=== PATIENT | female | born 1975 | race Caucasian/White ===

== ENCOUNTER 2018-01-16 03:14 | Emergency (ER) | payer MEDICARE, MEDICAID ==
[2018-01-16] MEDS ORDERED: ONDANSETRON 4 MG ORAL DISINTEGRATING TAB (Q0162 PER 1MG) As Ordered (03:43)
[2018-01-16] MEDS: ONDANSETRON 4 MG ORAL DISINTEGRATING TAB (Q0162 PER 1MG) PO (03:54)
== END 2018-01-16 04:46 | disposition home or self-care (01) ==
LOC: M ED 03:14
DX: F10.129 Alcohol abuse with intoxication, unspecified (principal); Z79.899 Other long term (current) drug therapy; Z88.8 Allergy status to other drugs, medicaments and biological substances
CPT/HCPCS: Q0162

== ENCOUNTER 2018-09-05 20:46 | Emergency (ER) | payer OTHER, MEDICARE, MEDICAID ==
[~2018-09-05] VITALS: Ht 160 cm; Wt 65.9 kg
[~2018-09-05 20:46] MED LIST: ABIL5TAB OR; ACET1TAB15 PO; ADVA1AER2; ALBUTEROL INH; ALPR1TAB3 PO; AMBI10TA OR; AMIT25TA10 PO; COLA100C2 OR; EFFE150C PO; ESOMEPRAZOLE PO; HYDROX; LIDO5DIS TOP; LUNE3TAB PO; LYRI75CA PO; LYRIC; METH1TAB40 PO; MULTIVIT PO; NAPROXEN PO; ONDA-1 PO; PERC5TAB8 PO; PROBCAP4 PO; SERO1TAB3 PO; SERT-138 PO; SKEL800T5 OR; TRAZ100T PO; TYLENOL #3; VENTAER; VENTAER INH; VIST25CA PO; VOLT1GEL TOP; ZANA4CAP PO; prenatal vitamin; seroquel
[2018-09-05 20:56] VITALS: BP 132/77
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
== END 2018-09-05 22:20 | disposition home or self-care (01) ==
LOC: M ED 20:46
DX: S70.11XA Contusion of right thigh, initial encounter (principal); V48.1XXA Car passenger injured in noncollision transport accident in nontraffic accident, initial encounter; Y92.9 Unspecified place or not applicable; Y93.9 Activity, unspecified; Y99.9 Unspecified external cause status; F10.10 Alcohol abuse, uncomplicated; F19.10 Other psychoactive substance abuse, uncomplicated; Z72.0 Tobacco use; Z79.899 Other long term (current) drug therapy

== ENCOUNTER 2018-12-31 12:39 | Emergency (ER) | payer MEDICARE, MEDICAID ==
[~2018-12-31] VITALS: Ht 160 cm; Wt 61.4 kg
--- NOTE | 2018-12-31 13:08 | REP ---
Head CT without contrast: History: Stroke like symptoms Comparison study: September 05, 2018. CT findings: Bone window settings demonstrate an intact bony calvarium. There is no evidence of skull fracture or incidental bony calvarial lesion. The visualized paranasal sinuses appear clear. No intraorbital abnormality is seen. On soft tissue window setting images; the lateral, third, and fourth ventricles are normal in size and position. Ho-white differentiation pattern is normal above and below the tentorium. There are is no evidence of intracranial hemorrhage. No mass, edema, infarction, or midline shift is seen. No extra-axial fluid collection is appreciated. Impression: Negative noncontrast head CT. Electronically Signed by Prakash Brand MD 12/31/2018 12:59 P
[2018-12-31] MEDS ORDERED: ALBUTEROL SULFATE 2.5 MG/0.5 ML INH NEB SOLN INH ONE (13:15)
[2018-12-31] MEDS ORDERED: NS 1,000 ML IV ONE (13:15)
[2018-12-31] MEDS ORDERED: IPRATROPIUM 0.5MG/ALBUTEROL 2.5MG INH SOL UD 3ML (DUONEB)(J7620) NEB ONE (13:15)
[2018-12-31] MEDS ORDERED: CLON-412 PO (13:33)
[2018-12-31] MEDS ORDERED: SYMB16INH INH (13:33)
--- NOTE | 2018-12-31 13:33 | REP ---
Portable chest x-ray: Single view. History: Dyspnea and cough. Comparison chest x-ray: September 06, 2011. Findings: EKG monitoring electrodes overlie the chest. The lungs are well inflated and clear. The pleural angles are sharp. Heart size is normal. No significant bony abnormality is seen. Impression: Negative portable chest x-ray. Electronically Signed by Prakash Brand MD 12/31/2018 01:25 P
[2018-12-31 13:41] LABS: ABG BASE EXCESS -1.5 (-2.0-2.0); ABG HCO3 16.1 MEQ/L (22.0-26.0); ABG O2 SATURATION 98.7 % (95.0-99.0); ABG PARTIAL PRESSURE O2 126.1 mmHg (75.0-100.0); ABG STANDARD HCO3 23.2 MEQ/L (22.0-26.0); ABG TOTAL CO2 16.6 MEQ/L (22.0-29.0)
[2018-12-31 13:46] LABS: ABG pH (ARTERIAL) 7.649 UNITS (7.350-7.450)
[2018-12-31] MEDS ORDERED: LORazepam 2 MG/ML VIAL (J2060) IV ONE (14:00)
[2018-12-31 14:15] LABS: BASO % 0.4 % (0.0-1.0); EOS % 0.1 % (0.0-3.0); HEMATOCRIT 38.9 % (36.0-47.0); HEMOGLOBIN 13.8 g/dl (12.0-15.5); LYMPH # 0.8 10^3/uL (1.5-4.5); LYMPH % 7.6 % (24.0-44.0); MEAN CORPUSCULAR HEMOGLOBIN 31.4 pg (27.0-33.0); MEAN CORPUSCULAR HGB CONC 35.5 g/dl (32.0-36.5); MEAN CORPUSCULAR VOLUME 88.4 fl (80.0-96.0); MONO # 0.9 10^3/uL (0.0-0.8); MONO % 8.2 % (0.0-5.0); NEUTROPHILS # 9.1 10^3/uL (1.8-7.7); NEUTROPHILS % 83.3 % (36.0-66.0); PLATELET COUNT, AUTOMATED 228 10^3/uL (150-450); WHITE BLOOD COUNT 10.9 10^3/uL (4.0-10.0)
[2018-12-31 14:33] LABS: ALBUMIN 4.2 GM/DL (3.2-5.2); ALT/SGPT 38 U/L (12-78); BILIRUBIN,DIRECT 0.3 MG/DL (0.0-0.2); BILIRUBIN,TOTAL 0.8 MG/DL (0.2-1.0); BLOOD UREA NITROGEN 8 MG/DL (7-18); CALCIUM LEVEL 10.2 MG/DL (8.5-10.1); CARBON DIOXIDE LEVEL 20 MEQ/L (21-32); CHLORIDE LEVEL 102 MEQ/L (98-107); CK-MB VALUE MASS 2.6 NG/ML (<3.6); CPK CREATINE PHOSPHOKINASE 348 U/L (26-192); CREATININE FOR GFR 1.16 MG/DL (0.55-1.30); ETHYL ALCOHOL (ETHANOL) < 0.003 % (0.000-0.010); GLOMERULAR FILTRATION RATE 54.5 (>58); GLUCOSE, FASTING 104 MG/DL (70-100); MB/CK RELATIVE INDEX 0.75 (< OR =4); POTASSIUM SERUM 3.3 MEQ/L (3.5-5.1); SODIUM LEVEL 137 MEQ/L (136-145); TOTAL PROTEIN 8.1 GM/DL (6.4-8.2)
[2018-12-31 14:53] LABS: INR 1.08; PROTHROMBIN TIME 13.7 SECONDS (11.8-14.0)
[2018-12-31] MEDS ORDERED: OXAZEPAM 15 MG CAP PO ONE (16:00)
[2018-12-31 16:01] VITALS: BP 158/98
--- NOTE | 2018-12-31 21:09 | ECGEPIP ---
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
== END 2018-12-31 17:00 | disposition left against medical advice (07) ==
LOC: M ED 12:39
DX: F10.239 Alcohol dependence with withdrawal, unspecified (principal); F33.9 Major depressive disorder, recurrent, unspecified; M79.7 Fibromyalgia
CPT/HCPCS: 36600; 70450; 71045; 80048; 80076; 82550; 82553; 82803; 84443; 84484; 85025; 85610; 93005; 93041; 96374; 99285; G0480; J2060

== ENCOUNTER 2019-02-09 10:32 | Emergency (ER) | payer MEDICARE, MEDICAID ==
[~2019-02-09] VITALS: Ht 160 cm; Wt 53.6 kg
[2019-02-09 10:32] VITALS: BP 165/86
[~2019-02-09 10:32] MED LIST changes: +CLON-412 PO; +SYMB16INH INH
[2019-02-09] MEDS ORDERED: PROV108A INH (10:38)
[2019-02-09] MEDS ORDERED: CLOB0.0548 TOP (11:47)
[2019-02-09] MEDS ORDERED: MUPI2OI TOP (11:47)
[2019-02-09] MEDS ORDERED: BACT800T5 PO (11:47)
== END 2019-02-09 11:57 | disposition home or self-care (01) ==
LOC: M ED 10:32
DX: L03.312 Cellulitis of back [any part except buttock and flank] (principal); L03.317 Cellulitis of buttock; L03.113 Cellulitis of right upper limb; L03.114 Cellulitis of left upper limb; L03.115 Cellulitis of right lower limb; L03.116 Cellulitis of left lower limb; Z79.899 Other long term (current) drug therapy

== ENCOUNTER 2019-03-01 15:08 | Emergency (ER) | payer MEDICARE, MEDICAID ==
[~2019-03-01] VITALS: Ht 157.5 cm; Wt 54.5 kg
[~2019-03-01 15:08] MED LIST changes: +BACT800T5 PO; +CLOB0.0548 TOP; +MUPI2OI TOP; +PROV108A INH
--- NOTE | 2019-03-01 15:41 | REP ---
Portable chest, 03:23 p.m., single AP view with the patient sitting: Comparison is 12/31/2018. The lung mast are clear. Cardiac size is normal. The carlyle, mediastinum, skeletal structures are unremarkable. There are no acute cardiopulmonary findings. There is a focal mass-like density measuring approximately 3.1 cm superimposed over the left hemidiaphragm medially of uncertain significance. There are no comparison CT studies. Impression: No acute cardiopulmonary findings. Mass-like density superimposed over the left hemidiaphragm as described. Consider follow-up CT for further evaluation of this finding. Electronically Signed by Sidney Barnard MD 03/01/2019 03:33 P
[2019-03-01 15:50] LABS: BASO % 0.5 % (0.0-1.0); EOS % 0.7 % (0.0-3.0); HEMATOCRIT 37.1 % (36.0-47.0); HEMOGLOBIN 12.8 g/dl (12.0-15.5); LYMPH # 1.2 10^3/uL (1.5-5.0); LYMPH % 21.2 % (24.0-44.0); MEAN CORPUSCULAR HEMOGLOBIN 31.2 pg (27.0-33.0); MEAN CORPUSCULAR HGB CONC 34.5 g/dl (32.0-36.5); MEAN CORPUSCULAR VOLUME 90.5 fl (80.0-96.0); MONO # 0.6 10^3/uL (0.0-0.8); MONO % 9.6 % (0.0-5.0); NEUTROPHILS # 3.9 10^3/uL (1.5-8.5); NEUTROPHILS % 67.8 % (36.0-66.0); PLATELET COUNT, AUTOMATED 239 10^3/uL (150-450); WHITE BLOOD COUNT 5.7 10^3/uL (4.0-10.0)
[2019-03-01 16:11] LABS: INR 0.96; PARTIAL THROMBOPLASTIN TIME 25.3 SECONDS (25.0-38.4); PROTHROMBIN TIME 12.5 SECONDS (11.8-14.0)
[2019-03-01] MEDS: NITROGLYCERIN 0.4 MG SUBL TABLET SL PRN ×3 (16:19→16:28)
[2019-03-01 16:25] LABS: ALBUMIN 3.2 GM/DL (3.2-5.2); ALT/SGPT 16 U/L (12-78); BILIRUBIN,DIRECT < 0.1 MG/DL (0.0-0.2); BILIRUBIN,TOTAL 0.2 MG/DL (0.2-1.0); BLOOD UREA NITROGEN 12 MG/DL (7-18); CALCIUM LEVEL 8.4 MG/DL (8.5-10.1); CARBON DIOXIDE LEVEL 23 MEQ/L (21-32); CHLORIDE LEVEL 109 MEQ/L (98-107); CK-MB VALUE MASS 1.1 NG/ML (<3.6); CPK CREATINE PHOSPHOKINASE 65 U/L (26-192); CREATININE FOR GFR 0.95 MG/DL (0.55-1.30); GLOMERULAR FILTRATION RATE > 60.0 (>58); GLUCOSE, FASTING 112 MG/DL (70-100); LIPASE 184 U/L (73-393); MB/CK RELATIVE INDEX 1.69 (< OR =4); POTASSIUM SERUM 3.2 MEQ/L (3.5-5.1); SODIUM LEVEL 143 MEQ/L (136-145); TOTAL PROTEIN 6.4 GM/DL (6.4-8.2); TROPONIN I < 0.02 NG/ML (< 0.10)
[2019-03-01 16:28] VITALS: BP 158/64
[2019-03-01] MEDS ORDERED: ISOVUE-370 76% 100ML VIAL (Q9967) As Ordered ONE (16:38)
[2019-03-01] MEDS ORDERED: POTASSIUM CHLORIDE 10 MEQ SR TABLET PO ONE (16:45)
[2019-03-01] MEDS ORDERED: ASPIRIN 81 MG CHEW TABLET PO ONE (17:00)
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
--- NOTE | 2019-03-01 19:24 | ECGEPIP ---
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
[2019-03-01 21:56] LABS: CK-MB VALUE MASS 1.1 NG/ML (<3.6); CPK CREATINE PHOSPHOKINASE 63 U/L (26-192); MB/CK RELATIVE INDEX 1.75 (< OR =4); TROPONIN I < 0.02 NG/ML (< 0.10)
[2019-03-01 22:16] VITALS: BP 159/87
--- NOTE | 2019-03-02 05:39 | ECGEPIP ---
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
== END 2019-03-01 22:36 | disposition home or self-care (01) ==
LOC: M ED 15:08
DX: R07.9 Chest pain, unspecified (principal); R94.31 Abnormal electrocardiogram [ECG] [EKG]; J45.909 Unspecified asthma, uncomplicated; F19.90 Other psychoactive substance use, unspecified, uncomplicated; Z79.01 Long term (current) use of anticoagulants; Z86.73 Personal history of transient ischemic attack (TIA), and cerebral infarction without residual deficits; Z87.39 Personal history of other diseases of the musculoskeletal system and connective tissue
CPT/HCPCS: 36415; 71045; 71275; 80048; 80076; 82550; 82553; 83690; 84484; 85025; 85610; 85730; 93005; 93041; 93970; 94760; 99285; Q9967

== ENCOUNTER 2019-03-08 09:20 | Emergency (ER) | payer MEDICARE, MEDICAID ==
[~2019-03-08] VITALS: Ht 160 cm; Wt 53.6 kg
[2019-03-08] MEDS ORDERED: CLON-412 PO (09:33)
[2019-03-08 09:54] LABS: BASO % 0.5 % (0.0-1.0); EOS % 0.1 % (0.0-3.0); HEMATOCRIT 38.4 % (36.0-47.0); HEMOGLOBIN 13.3 g/dl (12.0-15.5); LYMPH # 1.2 10^3/uL (1.5-5.0); LYMPH % 14.4 % (24.0-44.0); MEAN CORPUSCULAR HGB CONC 34.6 g/dl (32.0-36.5); MEAN CORPUSCULAR VOLUME 92.3 fl (80.0-96.0); MONO # 0.5 10^3/uL (0.0-0.8); MONO % 5.9 % (0.0-5.0); NEUTROPHILS # 6.8 10^3/uL (1.5-8.5); NEUTROPHILS % 78.6 % (36.0-66.0); PLATELET COUNT, AUTOMATED 253 10^3/uL (150-450); RED BLOOD COUNT 4.16 10^6/uL (4.00-5.40); WHITE BLOOD COUNT 8.6 10^3/uL (4.0-10.0)
--- NOTE | 2019-03-08 10:26 | REP ---
Portable chest, 09:50 a.m., single AP view with the patient sitting: Comparisons are 03/[address] of 03/01/1929. The lung mast are clear. Cardiac size is normal. The carlyle, mediastinum, skeletal structures are unremarkable. There is a focal unusual density superimposed over the medial aspect of the left hemidiaphragm, similar to the comparison portable study is similar to the portable chest of 12/31/2018. However, upon review of the chest CT of 12/31/2098. No diaphragmatic mass is identified. No chest, abdominal or esophageal or gastric mass is identified in this location by CT. There is no other mass or adenopathy,, for this density. Therefore, this may merely be superimposition artifact. Impression: There are no acute cardiopulmonary findings. On the comparison CT there is no mass or adenopathy to account for the density projected over the medial aspect of the left hemidiaphragm, therefore, this density may merely be superimposition artifact, likely from bowel loop or stomach. Electronically Signed by Sidney Barnard MD 03/08/2019 10:18 A
[2019-03-08 10:31] LABS: BLOOD UREA NITROGEN 11 MG/DL (7-18); CALCIUM LEVEL 9.4 MG/DL (8.5-10.1); CARBON DIOXIDE LEVEL 23 MEQ/L (21-32); CHLORIDE LEVEL 107 MEQ/L (98-107); CK-MB VALUE MASS 1.1 NG/ML (<3.6); CPK CREATINE PHOSPHOKINASE 105 U/L (26-192); CREATININE FOR GFR 0.87 MG/DL (0.55-1.30); GLOMERULAR FILTRATION RATE > 60.0 (>58); GLUCOSE, FASTING 81 MG/DL (70-100); MB/CK RELATIVE INDEX 1.05 (< OR =4); SODIUM LEVEL 140 MEQ/L (136-145); TROPONIN I < 0.02 NG/ML (< 0.10)
[2019-03-08 10:45] LABS: ETHYL ALCOHOL (ETHANOL) 0.047 % (0.000-0.010); THYROID STIMULATING HORMONE 4.64 uIU/ML (0.358-3.740)
[2019-03-08 11:20] VITALS: BP 177/89
--- NOTE | 2019-03-08 17:46 | ECGEPIP ---
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
== END 2019-03-08 11:30 | disposition home or self-care (01) ==
LOC: M ED 09:20
DX: F15.10 Other stimulant abuse, uncomplicated (principal); F10.10 Alcohol abuse, uncomplicated; I63.9 Cerebral infarction, unspecified; Z79.899 Other long term (current) drug therapy
CPT/HCPCS: 71045; 80048; 82550; 82553; 84443; 84484; 85025; 93005; 93041; 94760; 99284; G0480

== ENCOUNTER 2019-05-13 19:18 | Emergency (ER) | payer MEDICARE, MEDICAID ==
[~2019-05-13] VITALS: Ht 160 cm; Wt 54.5 kg
[2019-05-13 19:19] VITALS: BP 178/84
[2019-05-13] MEDS ORDERED: ASPI81TA85 PO (19:23)
[2019-05-13] MEDS ORDERED: VENTAER INH (19:58)
[2019-05-13] MEDS ORDERED: diphenhydrAMINE INJ 50MG/ML VIAL (J1200) IV STA (20:33)
[2019-05-13] MEDS ORDERED: NS 1,000 ML IV ONE (20:45)
[2019-05-13] MEDS ORDERED: METOCLOPRAMIDE INJ 10MG/2ML VIAL (J2765) IV ONE (20:45)
[2019-05-13] MEDS ORDERED: TETRACAINE 0.5% OPHTH SOLN 4ML OD ONE (20:45)
[2019-05-13] MEDS ORDERED: KETOROLAC 30 MG/ML VIAL (J1885) IV ONE (21:00)
[2019-05-13 21:31] LABS: BASO % 0.3 % (0.0-1.0); EOS % 0.1 % (0.0-3.0); HEMATOCRIT 35.3 % (36.0-47.0); LYMPH # 1.1 10^3/uL (1.5-5.0); LYMPH % 12.9 % (24.0-44.0); MEAN CORPUSCULAR HEMOGLOBIN 31.4 pg (27.0-33.0); MEAN CORPUSCULAR VOLUME 92.4 fl (80.0-96.0); MONO # 0.5 10^3/uL (0.0-0.8); MONO % 6.1 % (0.0-5.0); NEUTROPHILS # 6.9 10^3/uL (1.5-8.5); NEUTROPHILS % 80.3 % (36.0-66.0); PLATELET COUNT, AUTOMATED 270 10^3/uL (150-450); RED BLOOD COUNT 3.82 10^6/uL (4.00-5.40); WHITE BLOOD COUNT 8.7 10^3/uL (4.0-10.0)
--- NOTE | 2019-05-13 22:08 | REPVR ---
PROCEDURE INFORMATION: Exam: CT Head Without Contrast Exam date and time: 05/13/2019 9:56 PM Age: 43 years old Clinical history: Pain; Visual disturbance; Headache not specified; Additional info: R orbital BERGER, R eye blurry TECHNIQUE: Imaging protocol: Computed tomography of the head without contrast. Radiation optimization: All CT scans at this facility use at least one of these dose optimization techniques: automated exposure control; mA and/or kV adjustment per patient size (includes targeted exams where dose is matched to clinical indication); or iterative reconstruction. COMPARISON: CT Head without contrast 2018-12-31 12:51 FINDINGS: Brain: Normal. No hemorrhage. Unremarkable white matter. No mass effect. Ventricles: Normal. No ventriculomegaly. Bones/joints: Unremarkable. No acute fracture. Sinuses: Visualized sinuses are unremarkable. No fluid levels. Mastoid air cells: Visualized mastoid air cells are well aerated. Soft tissues: Unremarkable. IMPRESSION: No acute intracranial abnormality. Electronically signed by: Kareem Guzman On 05/13/2019 22:08:02 PM
[2019-05-13] MEDS ORDERED: MAG SULF 1GM/100ML (MAG RUN) 1 GM in IV 1 EA IV ONE (22:45)
[2019-05-13] MEDS ORDERED: VALPROATE SOD INJ 1,000 MG in D5W 50 ML IV ONE (22:45)
== END 2019-05-14 00:13 | disposition left against medical advice (07) ==
LOC: M ED 19:18
DX: R51 Headache (principal); G89.29 Other chronic pain; H53.8 Other visual disturbances; I10 Essential (primary) hypertension; J44.9 Chronic obstructive pulmonary disease, unspecified; Z79.899 Other long term (current) drug therapy; Z79.82 Long term (current) use of aspirin; Z98.890 Other specified postprocedural states
CPT/HCPCS: 70450; 80047; 85025; 96374; 96375; 99283; J1200; J1885; J2765

== ENCOUNTER 2020-12-19 14:49 | Inpatient (IN) | payer MEDICARE, MEDICAID ==
[~2020-12-19] VITALS: Ht 162.6 cm; Wt 61.5 kg
[~2020-12-19 14:49] MED LIST changes: +ASPI81TA86 PO
[2020-12-19] MEDS ORDERED: ACETAMINOPHEN 325 MG TAB PO ONE (15:35)
[2020-12-19] MEDS ORDERED: NS 1,000 ML IV SCH (18:00)
[2020-12-19] MEDS ORDERED: IBUPROFEN 600MG TAB PO ONE (18:00)
[2020-12-19 18:26] LABS: BASO % 0.2 % (0.0-1.0); HEMOGLOBIN 10.9 g/dl (12.0-15.5); LYMPH # 0.7 10^3/uL (1.5-5.0); LYMPH % 4.3 % (24.0-44.0); MEAN CORPUSCULAR HEMOGLOBIN 28.1 pg (27.0-33.0); MEAN CORPUSCULAR VOLUME 85.1 fl (80.0-96.0); MONO # 1.3 10^3/uL (0.0-0.8); MONO % 8.3 % (2.0-8.0); NEUTROPHILS # 13.2 10^3/uL (1.5-8.5); NEUTROPHILS % 86.4 % (36.0-66.0); PLATELET COUNT, AUTOMATED 186 10^3/uL (150-450); RED BLOOD COUNT 3.88 10^6/uL (4.00-5.40); WHITE BLOOD COUNT 15.3 10^3/uL (4.0-10.0)
--- NOTE | 2020-12-19 18:39 | REPVR ---
PROCEDURE INFORMATION: Exam: CT Head Without Contrast Exam date and time: 12/19/2020 6:15 PM Age: 45 years old Clinical indication: Other: Headache TECHNIQUE: Imaging protocol: Computed tomography of the head without contrast. Radiation optimization: All CT scans at this facility use at least one of these dose optimization techniques: automated exposure control; mA and/or kV adjustment per patient size (includes targeted exams where dose is matched to clinical indication); or iterative reconstruction. COMPARISON: CT Head without contrast 05/13/2019 9:54 PM FINDINGS: Brain: Normal. No hemorrhage. Unremarkable white matter. No mass effect. Cerebral ventricles: No ventriculomegaly. Paranasal sinuses: Visualized sinuses are unremarkable. No fluid levels. Mastoid air cells: Visualized mastoid air cells are well aerated. Bones/joints: Unremarkable. No acute fracture. Soft tissues: Mild left supraorbital soft tissue swelling. IMPRESSION: No acute intracranial abnormality. Electronically signed by: Shar Lofton On 12/19/2020 18:39:14 PM
[2020-12-19 18:49] LABS: ALBUMIN 2.8 GM/DL (3.2-5.2); ALT/SGPT 40 U/L (12-78); BILIRUBIN,DIRECT < 0.1 MG/DL (0.0-0.2); BILIRUBIN,TOTAL 0.5 MG/DL (0.2-1.0); BLOOD UREA NITROGEN 9 MG/DL (7-18); CALCIUM LEVEL 8.7 MG/DL (8.5-10.1); CARBON DIOXIDE LEVEL 24 MEQ/L (21-32); CHLORIDE LEVEL 100 MEQ/L (98-107); CREATININE FOR GFR 0.95 MG/DL (0.55-1.30); GLOMERULAR FILTRATION RATE > 60.0 (>58); GLUCOSE, FASTING 141 MG/DL (70-100); SODIUM LEVEL 135 MEQ/L (136-145); TOTAL PROTEIN 7.8 GM/DL (6.4-8.2)
[2020-12-19] MEDS ORDERED: POTASSIUM CHLORIDE 10 MEQ SR TABLET PO ONE ×2 (19:00→22:15)
--- NOTE | 2020-12-19 19:52 | REP ---
INDICATION: Abdominal Pain. COMPARISON: Comparison radiograph March 08, 2019. TECHNIQUE: Sitting AP and lateral views of the chest... FINDINGS: EKG electrodes are seen. The lungs are well inflated and free of infiltrate. Pleural angles are sharp. Heart is mildly enlarged on today's chest x-ray. Pulmonary vasculature is not increased. There is no evidence of pleural effusion or pulmonary edema. No acute bony abnormality is seen. Monitoring electrodes are visible. IMPRESSION: Mildly enlarged heart. Otherwise no acute disease.. <Electronically signed by Sim Brand > 12/19/20 194
[2020-12-19] MEDS ORDERED: SODIUM CHLORIDE 0.9% 1000ML IV STA (22:13)
[2020-12-19] MEDS ORDERED: MAALOX 30 ML SUSP *UDC PO PRN (22:15)
[2020-12-19] MEDS ORDERED: MOM 30ML SUSPENSION UDC PO PRN (22:15)
--- NOTE | 2020-12-19 22:18 | HPEPDOC ---
[facility] Medical History & Physical Date of Admission Dec 19, 2020 Date of Service: Dec 19, 2020 Other Provider Imelda Sharpe DYNAMOMETER TESTER Attending Physician: CINDI ARANGO MD History and Physical TIME OF SERVICE: 11:25 PM CHIEF COMPLAINT: Fevers HISTORY OF PRESENT ILLNESS: The patient was irritated that I was asking her the history of present illness again and was not very forthcoming with information. This 45-year-old female came to the hospital with complaints of fevers for about 12 days along with night of 10 in severity headaches that affected her entire head. She denied having cuts or open wounds on her skin, nausea vomiting diarrhea chest pain abdominal pain or falling. She admits to last using IV drugs about 1 year ago. REVIEW OF SYSTEMS: review of systems negative except as listed in HPI PAST MEDICAL/ SURGICAL HISTORY: Traumatic brain injury, PTSD, anxiety, history of major depressive disorder requiring inpatient psych admission, herniated disks, she denies having any surgeries SOCIAL HISTORY: She denies smoking or drinking alcohol and last used IV drugs about 1 year ago FAMILY HISTORY: Her brother suffers from depression ALLERGIES: Please see below. HOME MEDICATIONS: Please see below. PHYSICAL EXAMINATION: Vital Signs Date Time Temp Pulse Resp B/P (MAP) Pulse Ox O2 Delivery O2 Flow Rate FiO2 12/19/20 15:04 101.8 118 22 150/96 (114) 100 Room Air NORMAL PHYSICAL EXAM GEN: Slim built/not in apparent distress INTEGUMENT: not flushed/ not jaundice HEENT: sclera anicteric CVS: RRR/NMRG LUNGS: no coughing / lungs are clear to auscultation bilaterally on room air ABDOMEN: soft & not tender with palpation MSK/EXTREMITIES: range of motion intact in all 4 extremities NEURO: CN 2-12 are grossly intact / speech is not dysarthric PSYCH: alert and oriented to person place and time/ able to understand and follow all commands LABORATORY DATA: Immature Granulocyte % (Auto) 0.8, Neutrophils (%) (Auto) 86.4H, Lymphocytes (%) (Auto) 4.3L, Monocytes (%) (Auto) 8.3H, Eosinophils (%) (Auto) 0.0, Basophils (%) (Auto) 0.2, Neutrophils # (Auto) 13.2H, Lymphocytes # (Auto) 0.7L, Monocytes # (Auto) 1.3H, Eosinophils # (Auto) 0.0, Basophils # (Auto) 0.0, Nucleated Red Blood Cells % (auto) 0.0, Anion Gap 11, Glomerular Filtration Rate > 60.0, L actic Acid Level 1.1, Calcium Level 8.7, Total Bilirubin 0.5, Direct Bilirubin < 0.1, Aspartate Amino Transf (AST/SGOT) 6L, Alanine Aminotransferase (ALT/SGPT) 40, Alkaline Phosphatase 70, Total Protein 7.8, Albumin 2.8L, Albumin/Globulin Ratio 0.6L Urine Color YELLOW, Urine Appearance CLEAR, Urine pH 6.0, Urine Specific [place] 1.005, Urine Protein NEGATIVE, Urine Glucose (UA) NEGATIVE, Urine Ketones NEGATIVE, Urine Blood 1+H, Urine Nitrite NEGATIVE, Urine Bilirubin NEGATIVE, Urine Urobilinogen 0.2, Urine Leukocyte Esterase NEGATIVE, Urine WBC (Auto) 2, Urine RBC (Auto) 2, Urine Hyaline Casts (Auto) 0, Urine Bacteria (Auto) NEGATIVE, Urine Squamous Epithelial Cells 2, Urine Mucus (Auto) SMALL, Urine Sperm (Auto) IMAGING: Chest x-ray IMPRESSION: Mildly enlarged heart. Otherwise no acute disease. CT head IMPRESSION: No acute intracranial abnormality. MICROBIOLOGY: COVID-19, influenza A&B, and RSV are negative. Blood cultures are pending ASSESSMENT: Ms. Sosa is a 45-year-old with a history of IVDU who is admitted for evaluation of SIRS versus sepsis of unclear cause. PLAN: 1. SIRS vs Sepsis Her Temp >101, HR >90, WBC >12 & RR > 22 Possible causes include bacteremia (possibly due to IVDU), reactive due to drug use or other occult infection. Plan: Despite meeting SIRS her qSOFA score is only 1 (which is not high risk) so I will admit her to the medical floor / telemetry / because there is high suspicion for bacteremia and continued IVDU we will start empiric meropenem and vancomycin pending MRSA, blood culture, HIV, UDS and Hepatitis panel results. We will continue with IV fluids and acetaminophen for fevers. had high suspicion for bacterial endocarditis and recommended ordering an echocardiogram which will be done in the morning. 2 NN Anemia Plan: f/u stool occult and iron studies 3 Hypokalemia Plan: replete K and f/u Mg DVT PROPHYLAXIS: TEDS & Sequentials (Windy score =0 therefore pharmacological prophylaxis is not indicated) DISPOSITION: home after more than 2 midnight's stay Home Medications Scheduled PRN Acetaminophen (Tylenol) 325 Mg Tablet, 650 MG PO Q4H PRN for FEVER Ibuprofen (Ibuprofen) 200 Mg Tablet, 400 MG PO Q6H PRN for FEVER Allergies Coded Allergies: No Known Allergies (Unverified , 09/05/18) A-FIB/CHADSVASC A-FIB History Current/History of A-Fib/PAF?: No Current PO Anticoag Therapy: No CINDI ARANGO MD Dec 19, 2020 22:18
[2020-12-19 22:38] LABS: FERRITIN 87 NG/ML (8-252); IRON (FE) 18 UG/DL (50-170); MAGNESIUM LEVEL 1.9 MG/DL (1.8-2.4); PERCENT SATURATION 4.8 % (13.2-45.0); TOTAL IRON BINDING CAPACITY 377 UG/DL (250-450)
[2020-12-19] MEDS ORDERED: VANCOMYCIN HCL 1,000 MG, VIAL MATE ADAPTER 1 EACH in NS 250 ML IV SCH (22:45)
[2020-12-19] MEDS ORDERED: IBUP-1720 PO (22:54)
[2020-12-19] MEDS ORDERED: ACET-907 PO (22:54)
[2020-12-19 23:39] LABS: AMPHETAMINES LEVEL URINE NEGATIVE (NEGATIVE); BARBITURATES URINE NEGATIVE (NEGATIVE); BENZODIAZEPINES URINE NEGATIVE (NEGATIVE); CANNABINOIDS URINE NEGATIVE (NEGATIVE); COCAINE METABOLITE URINE NEGATIVE (NEGATIVE); METHADONE URINE NEGATIVE (NEGATIVE); OPIATES URINE NEGATIVE (NEGATIVE); PHENCYCLIDINE URINE NEGATIVE (NEGATIVE)
[2020-12-20] MEDS ORDERED: VANCOMYCIN HCL 1,000 MG, VIAL MATE ADAPTER 1 EACH in NS 250 ML IV ONE (00:45)
[2020-12-20] MEDS: ACETAMINOPHEN TAB 650MG DOSE (2X325MG) PO PRN ×2 (01:25→18:34)
[2020-12-20 02:00] VITALS: BP 144/75
[2020-12-20] MEDS: PIPERACILLIN/TAZOBACTAM SOD 4.5 GM in D5W MINI-BAG PLUS 50 ML IV SCH ×6 (02:33→20:15)
[2020-12-20] MEDS: IBUPROFEN 600MG TAB PO PRN ×2 (04:11→14:30)
[2020-12-20 06:00] VITALS: BP 136/77
[2020-12-20 06:24] LABS: HEMATOCRIT 32.1 % (36.0-47.0); HEMOGLOBIN 10.2 g/dl (12.0-15.5); MEAN CORPUSCULAR HEMOGLOBIN 27.7 pg (27.0-33.0); MEAN CORPUSCULAR HGB CONC 31.8 g/dl (32.0-36.5); MEAN CORPUSCULAR VOLUME 87.2 fl (80.0-96.0); PLATELET COUNT, AUTOMATED 161 10^3/uL (150-450); RED BLOOD COUNT 3.68 10^6/uL (4.00-5.40)
[2020-12-20 06:56] LABS: ALBUMIN 2.5 GM/DL (3.2-5.2); ALT/SGPT 31 U/L (12-78); BILIRUBIN,TOTAL 0.5 MG/DL (0.2-1.0); BLOOD UREA NITROGEN 10 MG/DL (7-18); CALCIUM LEVEL 8.2 MG/DL (8.5-10.1); CARBON DIOXIDE LEVEL 22 MEQ/L (21-32); CHLORIDE LEVEL 110 MEQ/L (98-107); CREATININE FOR GFR 0.91 MG/DL (0.55-1.30); GLOMERULAR FILTRATION RATE > 60.0 (>58); GLUCOSE, FASTING 102 MG/DL (70-100); SODIUM LEVEL 141 MEQ/L (136-145); TOTAL PROTEIN 6.7 GM/DL (6.4-8.2)
[2020-12-20] MEDS ORDERED: ENOXAPARIN 40MG/0.4ML SYRINGE (J1650 PER 10MG) SC SCH (09:00)
--- NOTE | 2020-12-20 10:33 | IPNPDOC ---
Text Note Date of Service The patient was seen on 12/20/20. NOTE Subjective: Patient is a 45-year-old female who presented to the emergency dep artment last night with a 12-day history of fevers and severe headaches. Patient states that the highest her fevers were were 104 degrees. Patient has been having these pretty much consistently for last 12 days. Patient initially denied IV drug use however, in talking with her this morning she did say she recently used Alecia intravenously. Patient denies any pain in her chest, abdomen, or extremities. Patient does have headaches however, the patient says that the headaches have improved. Patient says she was very sweaty and having to take off her gown because she had soaked through it. Patient says she is feeling slightly better but very fatigued and sick still. Review of systems: General: Patient reports fevers HEENT: Patient reports headaches Cardiovascular: Patient denies chest pain Respiratory: Patient denies shortness of breath, cough GI: Patient denies abdominal pain, nausea, vomiting, diarrhea : Patient denies increased frequency or pain with urination Extremities: Patient denies swelling or pain in extremities Neurological: Patient denies numbness or tingling in legs Physical exam: Vitals: See below General: Alert and oriented female who is laying in bed when I walked in. Patient did not appear to be in any acute distress. HEENT: Normocephalic, atraumatic, moist mucous membranes. Neck: No lymphadenopathy or thyromegaly Cardiac: Regular rate and rhythm, no murmurs, normal S1, normal S2 Pulm: Clear to auscultation bilaterally. No wheezes, rhonchi, rales Abd: Nondistended, nontender to palpation, normal bowel sounds Ext: No edema bilateral lower extremities, no wounds or lesions on her hands or feet. Labs: See below Imaging: No new imaging has been performed Assessment/plan: Patient is a 45-year-old female with a history of IV drug use in the recent past with intravenous Alecia who was admitted with a 12-day history of fevers. 1. SIRS versus sepsis. Patient had fevers with leukocytosis and tachycardia and tachypnea on admission. Patient is feeling slightly better. Patient's blood pressure remains in the normal range. Patient will have echocardiogram today as the patient does have a history of IV drug use and possible source of infection is endocarditis. If TTE is negative patient may need to undergo a TABITHA. Patient's first 2 blood cultures have come back positive for gram-positive cocci in clusters. Patient will remain on vancomycin and Zosyn at this time. Repeat blood cultures have been ordered for today. 2. Anemia. Patient appears to be iron deficient on iron studies. Stool occult blood has been ordered. We will await the results of that as they are pending. 3. Hypokalemia. This has improved with supplementation. DVT Prophylaxis: Teds and sequential devices Disposition: Pending the results of the patient's blood cultures and identification of source of infection. VS,Fishbone, I+O VS, Fishbone, I+O Laboratory Tests 12/19/20 18:15 12/20/20 05:54 Vital Signs Date Time Temp Pulse Resp B/P (MAP) Pulse Ox O2 Delivery O2 Flow Rate FiO2 12/20/20 06:00 113 19 136/77 (96) 98 Room Air 12/20/20 05:55 98.9 I&O- Last 24 Hours up to 6 AM 12/20/20 06:00 Intake Total 3030 ml Output Total 350 ml Balance 2680 ml FABIO GUERRERO DO Dec 20, 2020 10:33
[2020-12-20] MEDS: VANCOMYCIN HCL 1,000 MG, VIAL MATE ADAPTER 1 EACH in NS 250 ML IV SCH (12:15)
[2020-12-20] MEDS ORDERED: VANCOMYCIN HCL 750 MG, VIAL MATE ADAPTER 1 EACH in NS 250 ML IV SCH (13:00)
[2020-12-20 13:11] LABS: HEPATITIS A ANTIBODY IGM NEGATIVE (NEGATIVE); HEPATITIS B CORE ANTIBODY IGM NEGATIVE (NEGATIVE); HEPATITIS B SURFACE ANTIGEN NEGATIVE (NEGATIVE); HIV 1&2 SCREEN CENTAUR NEGATIVE (NEGATIVE)
[2020-12-20 13:14] LABS: HEPATITIS C VIRUS ABY INDEX > 11.0 INDEX (<0.8)
[2020-12-20 14:00] VITALS: BP 110/49
--- NOTE | 2020-12-20 19:27 | ECHO ---
ECHOCARDIOGRAM DATE OF PROCEDURE: 12/19/2020 Age: 45 Gender: Female Height: 163 cm Weight: 50 kg REFERRING PHYSICIAN: Kelly Graf MD INDICATION: Fever, systemic inflammatory response syndrome (SIRS). MEASUREMENTS: IVS 1.4 cm LV 4.1 cm LVPW 1.3 cm LA 2.8 cm Aorta 2.9 cm Mitral E wave velocity 86 cm/s Mitral A wave 76 cm/s E prime septal 9.4 cm/s E prime lateral 9.2 cm/s FINDINGS: This study is of good technical quality. Underlying sinus rhythm. Normal LV size with preserved LV systolic function. Calculated LVEF is 59% Mild left ventricular hypertrophy is noted. Right ventricle is also of normal size and systolic function. Both atria appear normal. All four cardiac valves are reasonably well seen and appear normal. No pericardial effusion is noted. Inferior vena cava is of normal size and appropriately collapses with inspiration. Aortic root, aortic arch, and visualized segment of the abdominal aorta all appear normal. Doppler interrogation reveals competent aortic valve. There is trace mitral and trace tricuspid insufficiency. Calculated pulmonary artery pressure is within normal limits. Pulmonic valve is also functionally intact. Mitral inflow pattern and tissue Doppler imaging of the mitral annulus revealed normal diastolic function. CONCLUSIONS: 1. Study is of good technical quality, underlying sinus rhythm. 2. Normal LV size with mild LVH and preserved LV systolic and diastolic function. 3. No significant valvular disease. 4. Likely normal central venous pressure and normal pulmonary artery pressure. 5. Essentially normal echocardiogram.
[2020-12-20 22:00] VITALS: BP 115/70
[2020-12-21] MEDS: VANCOMYCIN HCL 1,000 MG, VIAL MATE ADAPTER 1 EACH in NS 250 ML IV SCH ×3 (01:20→21:18)
[2020-12-21] MEDS: PIPERACILLIN/TAZOBACTAM SOD 4.5 GM in D5W MINI-BAG PLUS 50 ML IV SCH ×2 (02:47→08:28)
[2020-12-21 06:00] VITALS: BP 125/77
[2020-12-21] MEDS: IBUPROFEN 600MG TAB PO PRN ×2 (08:33→21:19)
--- NOTE | 2020-12-21 11:54 | IPNPDOC ---
Text Note Date of Service The patient was seen on 12/21/20. NOTE Subjective: Patient is a 45-year-old female who presented to the emergency department on 12/19/2020 with a 12-day history of fevers and headaches. Patient states that she has a headache today which was given Tylenol which has been making the headaches better. Patient did admit to recently using Alecia intravenously. Patient denies any chest pain today. Patient says that her fevers appear better as she has not been sweating as much as she was yesterday. Patient is otherwise doing well. Patient not have any acute events overnight. Review of systems: General: Patient denies fevers HEENT: Patient reports headaches Cardiovascular: Patient denies chest pain Respiratory: Patient denies shortness of breath, cough GI: Patient denies abdominal pain, nausea, vomiting, diarrhea : Patient denies increased frequency or pain with urination Extremities: Patient denies swelling or pain in extremities Neurological: Patient denies numbness or tingling in legs Physical exam: Vitals: See below General: Alert and oriented female patient who was laying in the bed when I walked in the room. Patient did not appear to be in any acute distress. HEENT: Normocephalic, atraumatic, moist mucous membranes. Neck: No lymphadenopathy or thyromegaly Cardiac: Regular rate and rhythm, no murmurs, normal S1, normal S2 Pulm: Clear to auscultation bilaterally. No wheezes, rhonchi, rales Abd: Nondistended, nontender to palpation, normal bowel sounds Ext: No edema bilateral lower extremities, no wounds or lesions on her hands or feet Labs: See below Imaging: No new imaging has been performed Assessment/plan: Patient is a 45-year-old female with history of IV drug use in the recent past with intravenous Alecia who was admitted with a 12-day history of fevers. 1. SIRS versus sepsis. Patient had fever with leukocytosis and tachycardia and tachypnea on admission. Patient is feeling better today. Patient's blood cultures are positive x3 for Staph aureus. Patient's Zosyn has been discontinued at this time. Patient's vancomycin will be continued. 2. Staph aureus bacteremia. We are waiting sensitivities to determine whether this is methicillin sensitive or methicillin-resistant. At this time we will continue vancomycin. Patient will need TABITHA as her TTE was negative. I spoke with infectious disease who stated that a TABITHA can wait until Thursday as the patient will most likely be here for about 2 weeks to receive IV antibiotics. 3. Anemia. Patient appears to be iron deficient on iron studies however, the patient does have an acute infection. We will continue to monitor this. 4. Hypokalemia. This is improved with supplementation. DVT Prophylaxis: Teds and sequential devices Disposition: Pending TABITHA to rule out endocarditis. Patient will most likely have that either Thursday or Thursday of next week. VS,Fishbone, I+O VS, Fishbone, I+O Vital Signs Date Time Temp Pulse Resp B/P (MAP) Pulse Ox O2 Delivery O2 Flow Rate FiO2 12/21/20 06:00 99.1 90 19 125/77 (93) 98 Room Air I&O- Last 24 Hours up to 6 AM 12/21/20 06:00 Intake Total 2285 ml Output Total 1075 ml Balance 1210 ml FABIO GUERRERO DO Dec 21, 2020 11:54
[2020-12-21 12:07] LABS: HEMOGLOBIN 9.7 g/dl (12.0-15.5); MEAN CORPUSCULAR HGB CONC 32.3 g/dl (32.0-36.5); MEAN CORPUSCULAR VOLUME 86.5 fl (80.0-96.0); PLATELET COUNT, AUTOMATED 176 10^3/uL (150-450); RED BLOOD COUNT 3.47 10^6/uL (4.00-5.40); WHITE BLOOD COUNT 9.4 10^3/uL (4.0-10.0)
[2020-12-21 12:34] LABS: BLOOD UREA NITROGEN 14 MG/DL (7-18); CALCIUM LEVEL 8.3 MG/DL (8.5-10.1); CARBON DIOXIDE LEVEL 23 MEQ/L (21-32); CHLORIDE LEVEL 113 MEQ/L (98-107); CREATININE FOR GFR 0.84 MG/DL (0.55-1.30); GLOMERULAR FILTRATION RATE > 60.0 (>58); GLUCOSE, FASTING 108 MG/DL (70-100); POTASSIUM SERUM 3.9 MEQ/L (3.5-5.1); SODIUM LEVEL 144 MEQ/L (136-145)
[2020-12-21 14:00] VITALS: BP 114/76
[2020-12-21 22:00] VITALS: BP 126/83
[2020-12-22] MEDS: VANCOMYCIN HCL 1,000 MG, VIAL MATE ADAPTER 1 EACH in NS 250 ML IV SCH ×3 (05:16→21:24)
[2020-12-22 06:00] VITALS: BP_SYST 126; BP_SYST 156; BP_DIAS 55; BP_DIAS 82
[2020-12-22 06:24] LABS: HEMATOCRIT 28.6 % (36.0-47.0); HEMOGLOBIN 9.2 g/dl (12.0-15.5); MEAN CORPUSCULAR HGB CONC 32.2 g/dl (32.0-36.5); MEAN CORPUSCULAR VOLUME 86.9 fl (80.0-96.0); PLATELET COUNT, AUTOMATED 183 10^3/uL (150-450); RED BLOOD COUNT 3.29 10^6/uL (4.00-5.40); WHITE BLOOD COUNT 7.5 10^3/uL (4.0-10.0)
[2020-12-22 06:37] LABS: BLOOD UREA NITROGEN 17 MG/DL (7-18); CALCIUM LEVEL 8.2 MG/DL (8.5-10.1); CARBON DIOXIDE LEVEL 25 MEQ/L (21-32); CHLORIDE LEVEL 112 MEQ/L (98-107); CREATININE FOR GFR 0.59 MG/DL (0.55-1.30); GLOMERULAR FILTRATION RATE > 60.0 (>58); GLUCOSE, FASTING 111 MG/DL (70-100); POTASSIUM SERUM 3.6 MEQ/L (3.5-5.1); SODIUM LEVEL 144 MEQ/L (136-145)
[2020-12-22 14:00] VITALS: BP 132/82
--- NOTE | 2020-12-22 14:07 | IPNPDOC ---
Text Note Date of Service The patient was seen on 12/22/20. NOTE Subjective: Patient is a 45-year-old female who presented the emergency [facility] on 12/19/2020 with a 12-day history of fever and headaches. Patient states that her headaches are better today. Patient still feels sweaty and fatigued but is otherwise feeling well. Review of systems: General: Patient denies fevers HEENT: Patient denies headaches Cardiovascular: Patient denies chest pain Respiratory: Patient denies shortness of breath, cough GI: Patient denies abdominal pain, nausea, vomiting, diarrhea : Patient denies increased frequency or pain with urination Extremities: Patient denies swelling or pain in extremities Neurological: Patient denies numbness or tingling in legs Physical exam: Vitals: See below General: Alert and oriented female patient who was laying in bed when I walked in the room. Patient did not appear to be in any acute distress. HEENT: Normocephalic, atraumatic, moist mucous membranes. Neck: No lymphadenopathy or thyromegaly Cardiac: Regular rate and rhythm, no murmurs, normal S1, normal S2 Pulm: Clear to auscultation bilaterally. No wheezes, rhonchi, rales Abd: Nondistended, nontender to palpation, normal bowel sounds Ext: No edema bilateral lower extremities, no wounds or lesions on her hands or feet Labs: See below Imaging: No new imaging has been performed Assessment/plan: 45-year-old female with a history of IV drug use in the recent past with intravenous Alecia who was admitted for 12-day history of fevers. 1. SIRS versus sepsis. Patient had fever with leukocytosis and tachycardia with tachypnea on admission. Patient is feeling better. Patient's blood cultures are positive x3 for MRSA. Patient Zosyn was discontinued and she will continue on vancomycin. Patient will need a TABITHA. 2. MRSA bacteremia. Patient will continue on vancomycin. Patient will need TABITHA next week to diagnose endocarditis as TTE was negative. Patient is otherwise clinically improving and blood cultures that were drawn on day 2 of admission and 1 is positive for Staph aureus. The other 1 is negative. Blood cultures will be redrawn today. 3. Anemia. We are awaiting stool occult blood to monitor for GI bleed as the patient's hemoglobin has dropped since her admission here. This may be due to acute infection as well. 4. Hypokalemia. This is improved with supplementation. DVT Prophylaxis: Teds and sequentials Disposition: Pending TABITHA to rule out endocarditis which will most likely be done early next week. Patient will need 2 weeks of IV antibiotics from the date of the first negative blood cultures. VS,Fishbone, I+O VS, Fishbone, I+O Laboratory Tests 12/22/20 05:59 Vital Signs Date Time Temp Pulse Resp B/P (MAP) Pulse Ox O2 Delivery O2 Flow Rate FiO2 12/22/20 06:00 98.7 86 20 126/82 (97) 96 Room Air I&O- Last 24 Hours up to 6 AM 12/22/20 05:59 Intake Total 1660 ml Output Total 660 ml Balance 1000 ml FABIO GUERRERO DO Dec 22, 2020 14:07
[2020-12-22] MEDS: IBUPROFEN 600MG TAB PO PRN (14:58)
[2020-12-22 22:00] VITALS: BP 128/84
[2020-12-23] MEDS: VANCOMYCIN HCL 1,000 MG, VIAL MATE ADAPTER 1 EACH in NS 250 ML IV SCH ×3 (04:59→20:24)
[2020-12-23] MEDS: IBUPROFEN 600MG TAB PO PRN ×2 (05:27→15:08)
[2020-12-23 06:00] VITALS: BP 127/70
[2020-12-23 06:58] LABS: HEMATOCRIT 29.5 % (36.0-47.0); HEMOGLOBIN 9.4 g/dl (12.0-15.5); MEAN CORPUSCULAR HEMOGLOBIN 27.7 pg (27.0-33.0); MEAN CORPUSCULAR HGB CONC 31.9 g/dl (32.0-36.5); PLATELET COUNT, AUTOMATED 202 10^3/uL (150-450); RED BLOOD COUNT 3.39 10^6/uL (4.00-5.40); WHITE BLOOD COUNT 9.1 10^3/uL (4.0-10.0)
[2020-12-23 07:28] LABS: BLOOD UREA NITROGEN 12 MG/DL (7-18); CALCIUM LEVEL 8.4 MG/DL (8.5-10.1); CARBON DIOXIDE LEVEL 26 MEQ/L (21-32); CHLORIDE LEVEL 109 MEQ/L (98-107); CREATININE FOR GFR 0.68 MG/DL (0.55-1.30); GLOMERULAR FILTRATION RATE > 60.0 (>58); GLUCOSE, FASTING 95 MG/DL (70-100); POTASSIUM SERUM 3.5 MEQ/L (3.5-5.1); SODIUM LEVEL 142 MEQ/L (136-145)
--- NOTE | 2020-12-23 11:45 | IPNPDOC ---
Text Note Date of Service The patient was seen on 12/23/20. NOTE Subjective: Patient is a 45-year-old female presented to the emergency depart ment on 12/19/2020 with a 12-day history of fever and headaches. Patient states that the headaches are better today although she does have a mild headache today. Patient still feels fatigued but is otherwise feeling well. Review of systems: General: Patient denies fevers HEENT: Patient reports mild headaches Cardiovascular: Patient denies chest pain Respiratory: Patient denies shortness of breath, cough GI: Patient denies abdominal pain, nausea, vomiting, diarrhea : Patient denies increased frequency or pain with urination Extremities: Patient denies swelling or pain in extremities Neurological: Patient denies numbness or tingling in legs Physical exam: Vitals: See below General: Alert and oriented female patient who is laying in bed when I walked into the room. Patient did not appear to be in any acute distress. HEENT: Normocephalic, atraumatic, moist mucous membranes. Neck: No lymphadenopathy or thyromegaly Cardiac: Regular rate and rhythm, 1/6 systolic murmur heard loudest over the fourth intercostal space on the left sternal border, normal S1, normal S2 Pulm: Clear to auscultation bilaterally. No wheezes, rhonchi, rales Abd: Nondistended, nontender to palpation, normal bowel sounds Ext: No edema bilateral lower extremities no wounds or lesions on her hands or feet Labs: See below Imaging: No new imaging has been performed Assessment/plan: 45-year-old female with history of IV drug use who presented to the emergency department with a 12-day history of fevers. 1. SIRS versus sepsis. Patient had fever with leukocytosis and tachycardia with tachypnea on admission. Patient is feeling better. Patient's blood cultures are positive x4 for MRSA. Patient is currently on vancomycin. Patient will need TABITHA. 2. MRSA bacteremia. Patient's blood cultures from 12/20/2020 were positive for MRSA in one of the 2 cultures. Repeat cultures were ordered yesterday. Co ntinue on vancomycin. Patient will need TABITHA either tomorrow or Thursday. 3. Anemia. This is stabilized we will continue to monitor. 4. Hypokalemia. This is improved with supplementation. DVT Prophylaxis: Teds and sequentials Disposition: Pending TABITHA to rule out endocarditis. Patient will most likely need 2 weeks of IV antibiotics. PICC line order has been placed. VS,Wilibone, I+O VS, Wilibone, I+O Laboratory Tests 12/23/20 06:35 Vital Signs Date Time Temp Pulse Resp B/P (MAP) Pulse Ox O2 Delivery O2 Flow Rate FiO2 12/23/20 06:00 98.0 86 20 127/70 (89) 97 Room Air I&O- Last 24 Hours up to 6 AM 12/23/20 06:00 Intake Total 1530 ml Output Total 1610 ml Balance -80 ml FABIO GUERRERO DO Dec 23, 2020 11:45
[2020-12-23 14:00] VITALS: BP 122/79
[2020-12-23] MEDS ORDERED: VANCOMYCIN HCL 500 MG in D5W MINI-BAG PLUS 100 ML IV ONE (15:00)
[2020-12-24] VITALS: BP 146/92
[2020-12-24] MEDS: VANCOMYCIN HCL 1,000 MG, VIAL MATE ADAPTER 1 EACH in NS 250 ML IV SCH ×3 (04:42→21:10)
[2020-12-24 06:00] VITALS: BP 141/92
[2020-12-24 06:03] LABS: HEMATOCRIT 29.4 % (36.0-47.0); HEMOGLOBIN 9.3 g/dl (12.0-15.5); MEAN CORPUSCULAR HEMOGLOBIN 27.7 pg (27.0-33.0); MEAN CORPUSCULAR HGB CONC 31.6 g/dl (32.0-36.5); MEAN CORPUSCULAR VOLUME 87.5 fl (80.0-96.0); PLATELET COUNT, AUTOMATED 236 10^3/uL (150-450); RED BLOOD COUNT 3.36 10^6/uL (4.00-5.40); WHITE BLOOD COUNT 12.9 10^3/uL (4.0-10.0)
[2020-12-24 06:29] LABS: BLOOD UREA NITROGEN 13 MG/DL (7-18); CALCIUM LEVEL 7.7 MG/DL (8.5-10.1); CARBON DIOXIDE LEVEL 28 MEQ/L (21-32); CHLORIDE LEVEL 109 MEQ/L (98-107); CREATININE FOR GFR 0.77 MG/DL (0.55-1.30); GLOMERULAR FILTRATION RATE > 60.0 (>58); GLUCOSE, FASTING 100 MG/DL (70-100); POTASSIUM SERUM 3.9 MEQ/L (3.5-5.1); SODIUM LEVEL 143 MEQ/L (136-145)
[2020-12-24 08:40] LABS: VANCOMYCIN LEVEL TROUGH 41.9 UG/ML (10.0-20.0)
--- NOTE | 2020-12-24 09:28 | CR ---
CONSULTATION DATE: 12/21/2020 REASON FOR CONSULTATION: I was asked by Dr. Bajwa to perform transesophageal echocardiogram on Mrs. Sosa because of suspicion for endocarditis. HISTORY: She presented to the hospital on December 19 with approximately ten day history of fever, chills, and she has been growing MRSA from numerous blood cultures. Transthoracic echocardiogram did not reveal any convincing evidence for endocarditis but clinically the suspicion is very high and consequently I am being asked to perform transesophageal echocardiogram. I met with the patient. I explained to her the rationale for the procedure, the potential risks, benefits, and alternatives. I answered all her questions. Tentatively we will plan to pursue the procedure later today. PHYSICAL EXAMINATION: General: The patient is alert, oriented, and appropriate. She does not seem to be in any distress. Vital signs: Blood pressure 140/92, heart rate has been in the 80s and 90s. She is currently afebrile and saturating 99% on room air. HEENT: She is missing upper teeth but the lower teeth are intact. The JVP is not high. Lungs are clear, good air movement. Heart exam reveals a regular rhythm. I do not appreciate a distinct murmur, rub or gallop. Abdomen is soft and nontender. Extremities are free of edema. I do not appreciate any signs of peripheral embolization on her hands or toes. LABORATORIES: WBC count 12.9, hemoglobin 9.3, hematocrit 29.4, platelet count 236,000. Basic metabolic panel is normal. She tested positive for hepatitis C but all the other hepatitis antigens have been negative. ASSESSMENT AND PLAN: Mrs. Sosa is a 45-year-old lady with a history of IV drug use who presented with approximately a ten day history of fevers or chills and has multiple blood cultures positive for MRSA. Even though the transthoracic echocardiogram did not reveal any convincing evidence for vegetation she certainly has clinically high probability of endocarditis. Consequently I do believe transesophageal echocardiogram is appropriate. I discussed the rationale, risks and benefits with the patient and she signed the appropriate consent. I tentatively plan to pursue the procedure later today. SANDRO
--- NOTE | 2020-12-24 12:04 | IPNPDOC ---
Text Note Date of Service The patient was seen on 12/24/20. NOTE Subjective: Patient is a 45-year-old female presented emergency department 12/19/2020 with 12-day history of fevers and headaches. Patient states she is feeling still fatigued but is feeling slightly better. Patient is otherwise feeling well today. Review of systems: General: Patient denies fevers HEENT: Patient denies headaches Cardiovascular: Patient denies chest pain Respiratory: Patient denies shortness of breath, cough GI: Patient denies abdominal pain, nausea, vomiting, diarrhea : Patient denies increased frequency or pain with urination Extremities: Patient denies swelling or pain in extremities Neurological: Patient denies numbness or tingling in legs Physical exam: Vitals: See below General: Alert and oriented female was lying in bed when I walked in the room. Patient did not appear to be in any acute distress. HEENT: Normocephalic, atraumatic, moist mucous membranes. Neck: No lymphadenopathy or thyromegaly Cardiac: Regular rate and rhythm, no murmurs, normal S1, normal S2 Pulm: Clear to auscultation bilaterally. No wheezes, rhonchi, rales Abd: Nondistended, nontender to palpation, normal bowel sounds Ext: No edema bilateral lower extremities Labs: See below Imaging: No new imaging has been performed Assessment/plan: 45-year-old female with history of IV drug use who presented the emergency department 12-day history of fevers 1. Sirs versus sepsis. Patient had fever, leukocytosis, tachycardia, and tachypnea on admission. Patient is feeling better. Patient's blood cultures are positive x4 for MRSA. Patient is currently on vancomycin with plans to get TABITHA today. 2. MRSA bacteremia. Patient's blood cultures from 12/20/2020 were positive for MRSA in one of the 2 cultures. Repeat cultures ordered yesterday have been negative so far. Continue on vancomycin. Patient will hopefully be getting TABITHA today by Dr. Heaton. Infectious disease consultation has been placed as well. 3. Anemia. Continue to monitor as this is stabilized. 4. Hyperkalemia, resolved, improved with supplementation DVT Prophylaxis: Teds and sequentials Disposition: Pending TABITHA to rule out endocarditis. Patient will most likely need 2 weeks of IV antibiotics. PICC line order placed. VS,Fishbone, I+O VS, Fishbone, I+O Laboratory Tests 12/24/20 05:44 Vital Signs Date Time Temp Pulse Resp B/P (MAP) Pulse Ox O2 Delivery O2 Flow Rate FiO2 12/24/20 06:00 99.1 87 18 141/92 (108) 99 Room Air I&O- Last 24 Hours up to 6 AM 12/24/20 06:00 Intake Total 2275 ml Output Total 1650 ml Balance 625 ml FABIO GUERRERO DO Dec 24, 2020 12:04
[2020-12-24 14:00] VITALS: BP 139/92
[2020-12-24] MEDS ORDERED: LIDOCAINE 1% MDV 20ML VIAL As Ordered ONE (16:25)
[2020-12-24] MEDS ORDERED: LIDOCAINE 2% 100MG/5ML SDV (FOR ANES.) As Ordered ONE (16:38)
[2020-12-24] MEDS ORDERED: fentaNYL 100 MCG/2 ML INJECTION (J3010) As Ordered ONE (16:38)
[2020-12-24] MEDS ORDERED: ONDANSETRON 4MG/2ML VIAL As Ordered ONE (16:38)
[2020-12-24] MEDS ORDERED: propofoL 200 MG/20 ML VIAL As Ordered ONE ×2 (16:38→16:47)
[2020-12-24] MEDS ORDERED: CETACAINE SPRAY 5GM As Ordered ONE (16:54)
[2020-12-24] MEDS ORDERED: LIDOCAINE VISCOUS 2% SOLN 15ML UDC As Ordered ONE (16:55)
[2020-12-24] MEDS ORDERED: MIDAZOLAM INJ 2MG/2ML VIAL (J2250 PER 1MG) As Ordered ONE (17:12)
[2020-12-24] MEDS ORDERED: ONDANSETRON 4MG/2ML VIAL IV PRN (18:00)
[2020-12-24] MEDS ORDERED: fentaNYL 100 MCG/2 ML INJECTION (J3010) IV PRN (18:00)
[2020-12-24] MEDS ORDERED: LR 1,000 ML IV SCH (18:00)
[2020-12-24] MEDS ORDERED: oxyCODONE 5MG TAB PO PRN (18:00)
[2020-12-24 18:10] VITALS: BP 140/92
[2020-12-24 18:48] VITALS: BP 142/91
[2020-12-24 20:15] VITALS: BP 135/90
[2020-12-24] MEDS: SODIUM CHLORIDE 0.9% INJ 10 ML SYR IV PRN (21:11)
[2020-12-25] MEDS: VANCOMYCIN HCL 1,000 MG, VIAL MATE ADAPTER 1 EACH in NS 250 ML IV SCH ×3 (05:13→21:44)
[2020-12-25] MEDS: SODIUM CHLORIDE 0.9% INJ 10 ML SYR IV SCH ×2 (05:13→17:03)
[2020-12-25 05:39] LABS: HEMATOCRIT 28.4 % (36.0-47.0); HEMOGLOBIN 9.1 g/dl (12.0-15.5); MEAN CORPUSCULAR HEMOGLOBIN 28.3 pg (27.0-33.0); MEAN CORPUSCULAR VOLUME 88.2 fl (80.0-96.0); PLATELET COUNT, AUTOMATED 212 10^3/uL (150-450); RED BLOOD COUNT 3.22 10^6/uL (4.00-5.40); WHITE BLOOD COUNT 10.5 10^3/uL (4.0-10.0)
[2020-12-25 05:57] LABS: ERYTHROCYTE SEDIMENTATION RATE 58 mm/hr (0-20)
[2020-12-25 06:00] VITALS: BP 134/91
[2020-12-25 06:05] LABS: BLOOD UREA NITROGEN 11 MG/DL (7-18); C REACTIVE PROTEIN QUANTITATIV 1.55 MG/DL (0.00-0.30); CARBON DIOXIDE LEVEL 29 MEQ/L (21-32); CHLORIDE LEVEL 107 MEQ/L (98-107); CREATININE FOR GFR 0.72 MG/DL (0.55-1.30); GLOMERULAR FILTRATION RATE > 60.0 (>58); GLUCOSE, FASTING 98 MG/DL (70-100); POTASSIUM SERUM 3.8 MEQ/L (3.5-5.1); SODIUM LEVEL 140 MEQ/L (136-145)
--- NOTE | 2020-12-25 07:55 | REP ---
INDICATION: poor vascular access, need for custodial iv antibiotics. COMPARISON: None. TECHNIQUE: The procedure was performed under the direct supervision of Dr. Brand. The risks and benefits of the procedure were explained to the patient and informed consent was obtained. The right basilic vein was localized using ultrasound guidance. The skin was prepped and draped in a sterile fashion. 1 mL of 1% lidocaine was used as a local anesthetic. Using ultrasound guidance the basilic vein was cannulated and a 0.018 guidewire was inserted and advanced to the SVC using fluoroscopic guidance, and last image hold technology. The needle was removed and a 5 Liberian dilator and peel-away sheath was inserted over the guide wire. A 5 Liberian dual lumen catheter was cut to length of 39 cm. The dilator was removed and the catheter was inserted over the guide wire with the tip ending in the SVC. The peel-away sheath was removed and the catheter was flushed with heparinized saline as per Hospital protocol. The catheter was affixed to the skin and a sterile dressing was applied. Estimated blood loss: Less than 1 mL The patient tolerated the procedure well and there were no immediate complications. 0.1 minutes of fluoro time was utilized for this procedure. FINDINGS: None IMPRESSION: PICC line insertion right basilic vein with the tip ending in the SVC. <Electronically signed by Bi Kearney > 12/24/20 8288 <Electronically signed by Sim Brand > 12/25/20 2100
--- NOTE | 2020-12-25 08:10 | T-ECHO ---
TRANSESOPHAGEAL ECHO DATE: 12/24/2020 REFERRING PHYSICIAN: Augustine Ha D.O. INDICATIONS: Methicillin-resistant Staphylococcus aureus (MRSA) bacteremia with suspicion for endocarditis. ANESTHESIOLOGIST: Lluvia Gould CRNA. POSTPROCEDURE DIAGNOSIS: Tricuspid endocarditis. BRIEF HISTORY: Mrs. Sosa is a 45-year-old female who presented to the hospital after more than 10 days of fever and chills. She had multiple blood cultures positive for MRSA. Transthoracic echocardiogram did not reveal any convincing evidence for vegetations and consequently, a transesophageal echocardiogram was ordered. I met with the patient this morning. I explained the rationale for the procedure, its potential complications, and she did sign the appropriate consent. DESCRIPTION OF PROCEDURE: The procedure was performed in the operating room. The patient presented in a fasting condition. Her posterior pharynx was anesthetized using viscous Lidocaine and Cetacaine spray. After all the monitors were applied and appropriate timeout was taken, she was positioned in the left lateral decubitus position. A bite block was placed. After anesthesiology administered sedation and appropriate level of sedation was accomplished, the probe was introduced into the esophagus and later the stomach without difficulty. After appropriate images were obtained, it was withdrawn. There were no immediate complications and the patient tolerated the procedure well. Left ventricle has normal systolic function with estimated EF of 60% to 65%. No segmental wall abnormalities are noted. Mitral valve is structurally normal. No vegetations or abnormalities are noted. By color Doppler imaging, there is trace mitral insufficiency. Left atrial appendages are relatively small and free of thrombi. There is normal flow in both left and right-sided pulmonary veins. Atrial septum is intact based on color Doppler and two-dimensional imaging. The aortic valve is tricuspid, it appears normal. There is normal mobility and no stenosis or insufficiency based on Doppler evaluation. Pulmonic valve was relatively poorly seen, but grossly appears normal without stenosis or insufficiency. Tricuspid valve has a vegetation attached to one of its cusps. It measures approximately 1.5 x 0.5 cm and is elongated in its shape. It moves freely with cardiac contractions. There is also prominent eustachian tube and there is a PICC line catheter noted in the superior vena cava. By color Doppler imaging, there is at least moderate tricuspid insufficiency with prolapse of tricuspid cusp. There is minimal thoracic aortic atherosclerosis. CONCLUSIONS: 1. Preserved LV systolic function. 2. Preserved RV systolic function. 3. Normal aortic, mitral, and pulmonic valves. 4. Intact atrial septum. 5. Left atrial appendage free of thrombi. 6. Normal flow in both right-sided and left-sided pulmonary veins. 7. Minimal thoracic aortic atherosclerosis. 8. A 1.5 x 0.5 cm elongated vegetation attached to tricuspid valve with resulting minimal prolapse and approximately moderate tricuspid insufficiency. Results of the study were communicated to the patient. There were no immediate complications and the patient returned back to her room. SANDRO
--- NOTE | 2020-12-25 08:50 | CR ---
CONSULTATION DATE: 12/24/2020 REQUESTING PHYSICIAN: Augustine Ha D.O. REASON FOR CONSULTATION: Evaluation of MRSA bacteremia and possibility of endocarditis. HISTORY OF PRESENT ILLNESS: Ms. Sosa is a 45-year-old female with a history of IV drug abuse using Alecia, although the patient states that she does use her own needle and does not share with anyone. She was admitted with a two week history of fever and chills. The patient denies any history of M RSA. No history of bullae. The patient had left-sided TMJ for about a month prior to admission. She denies any nausea, vomiting, diarrhea, chest pain, or shortness of breath. She has a history of asthma and always has a mild cough. She has never smoked. PAST MEDICAL HISTORY: 1. Traumatic brain injury. 2. PTSD. 3. Anxiety. 4. Depression requiring psychiatric admission. 5. Herniated disk. PAST SURGICAL HISTORY: Negative. SOCIAL HISTORY: She is . She lives with her . She has a 13-year-old son. She denies smoking or drinking alcohol, but admits to IV drug use, especially Alecia. She is not very forthcoming about her history and does not want to discuss too many details. ALLERGIES: No known drug allergies. MEDICATIONS: 1. Vancomycin 1 gram IV q. 8 hours. 2. Ibuprofen 600 mg p.o. q. 6 p.r.n. 3. Milk of magnesia 30 mL p.r.n. daily. 4. Tylenol p.r.n. LABORATORY DATA: White count was 15.3 on admission currently 12.9, hemoglobin 9.3, hematocrit 29.4, platelets 236,000. Sodium 143, potassium 3.9, chloride 109, bicarb 28, BUN 13, creatinine 0.77, glucose 100, calcium 7.7, AST 6, ALT 31, alkaline phosphatase 59, total protein 6.7. Vancomycin trough was 41.9 on 12/24, repeated at 12 o'clock was 13.8 so it is probably with a peak. MRSA screen was positive. Hepatitis C antibody was positive with positive RNA. Hepatitis A negative. B surface antigen negative. B core IgM negative. Blood cultures were positive for MRSA on 12/19 three sets, 12/20 one out of two sets, and 12/22 two out of two sets were negative. First negative cultures on 12/22. Respiratory panel was negative. IMAGING DATA: CT head was negative. Chest x-ray showed mildly enlarged heart with no acute pathology. Echocardiogram of good quality. Normal LV size. Mild LVH. No significant valvular disease. Done on 12/21 and a TABITHA was done today. PHYSICAL EXAMINATION: GENERAL APPEARANCE: Middle-aged female in no acute distress. VITAL SIGNS: Temperature 98.4, pulse 83, respirations 19, blood pressure 142/91. O2 saturation 99% on room air. T-max was 102.8 on 12/20, but has had no fever since 12/21. HEART: Normal S1, S2. No murmurs, rubs, or gallops appreciated. LUNGS: Clear. No wheezing, rales, or rhonchi. ABDOMEN: Soft and nontender with no hepatosplenomegaly. EXTREMITIES: No clubbing, cyanosis, or edema. No calf tenderness. SKIN: No lesions. No rashes. No petechiae. No peripheral stigmata of endocarditis. HEENT: Very poor dentition. She only has lower teeth. Upper teeth have been extracted from a traumatic brain injury. She has left TMJ pain with tenderness and difficulty opening her mouth. IMPRESSION: This is a 45-year-old female with a history of IV drug use with a new diagnosis of hepatitis C admitted with methicillin-resistant Staphylococcus aureus (MRSA) bacteremia and a two week history of fever. 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 She has been on IV vancomycin with improvement and defervescence. PLAN: Continue IV vancomycin at 1 gram every 8 hours. The patient will need a peripherally inserted central catheter (PICC) line, which is scheduled for today. She will need treatment for at least four weeks with IV antibiotics; possibility would be also two weeks and then switch to IV Dalvance. Will depend on her treatment after we get results of transesophageal echocardiogram (TABITHA). The patient will need to also be treated for chronic hepatitis C as an outpatient. Will obtain ESR, CRP, hepatitis B surface antibody, and hepatitis A IgG to see if she needs vaccination.
[2020-12-25] MEDS: IBUPROFEN 600MG TAB PO PRN (13:36)
--- NOTE | 2020-12-25 13:40 | IPNPDOC ---
Text Note Date of Service The patient was seen on 12/25/20. NOTE Subjective: Patient is a 45-year-old female present to the emergency department on 12/19/2020 with a 12-day history of fevers and headaches. Patient states she is feeling fatigued but is feeling better. Patient had TABITHA yesterday which did show a vegetation on the tricuspid valve which confirms a diagnosis of endocarditis. Patient is currently on vancomycin. No acute events overnight. Review of systems: General: Patient denies fevers HEENT: Patient denies headaches Cardiovascular: Patient denies chest pain Respiratory: Patient denies shortness of breath, cough GI: Patient denies abdominal pain, nausea, vomiting, diarrhea : Patient denies increased frequency or pain with urination Extremities: Patient denies swelling or pain in extremities Neurological: Patient denies numbness or tingling in legs Physical exam: Vitals: See below General: Alert and oriented female patient was lying in bed when I walked in the room. Patient do not appear to be in any acute distress. HEENT: Normocephalic, atraumatic, moist mucous membranes. Neck: No lymphadenopathy or thyromegaly Cardiac: Regular rate and rhythm, no murmurs, normal S1, normal S2 Pulm: Clear to auscultation bilaterally. No wheezes, rhonchi, rales Abd: Nondistended, nontender to palpation, normal bowel sounds Ext: No edema bilateral lower extremities Labs: See below Imaging: Transesophageal echocardiogram was performed by Dr. Heaton on 12/24/2020 which was reported to show preserved left ventricular systolic function, preserved right ventricular systolic function, normal aortic, mitral, and pulmonic valves. Intact atrial septum. Left atrial appendage free of thrombi. Normal flow in both right-sided and left-sided pulmonary veins. Minimal thoracic aortic atherosclerosis. 1.5 x 0.5 cm elongated vegetation attached to the tricuspid valve with resulting minimal prolapse and approximately mild tricuspid insufficiency. Assessment/plan: 45-year-old female with a history of IV drug use presented to the emergency department for 12-day history of fever who was found to have tricuspid valve en docarditis 1. Tricuspid valve endocarditis. Patient initially presented with SIRS versus sepsis with leukocytosis, fever, and tachycardia. Patient is feeling better. Patient blood cultures are positive x4 for MRSA. Continue with vancomycin. Infectious disease consult and recommends continuing vancomycin for 2 weeks and possibly being able to switch to IV Dalvance. Due to the patient's IV drug use, patient will not be able to be discharged until IV antibiotics are completed. 2. MRSA bacteremia. Patient's blood cultures from 12/22/2020 have been negative x48 hours at this point. Patient did grow back MRSA on 12/20/2020. 3. Anemia. Stabilized and will continue to monitor 4. Hypokalemia. This is improved supplementation. 5. Hepatitis C. Patient will need outpatient treatment. I did discuss the results of her hepatitis C test being positive. Patient states that she buys he r needles from an [employer] company and does not share needles with anyone. Patient states that she has had unprotected intercourse with the same partner for the last 12 years. DVT Prophylaxis: Teds and sequentials Disposition: Pending completion of IV antibiotics. VS,Fishbone, I+O VS, Fishbone, I+O Laboratory Tests 12/25/20 05:20 12/25/20 05:21 Vital Signs Date Time Temp Pulse Resp B/P (MAP) Pulse Ox O2 Delivery O2 Flow Rate FiO2 12/25/20 06:00 99.5 89 18 134/91 (105) 98 Room Air I&O- Last 24 Hours up to 6 AM 12/25/20 06:00 Intake Total 1297 ml Output Total 2100 ml Balance -803 ml FABIO GUERRERO DO Dec 25, 2020 13:40
[2020-12-25 14:00] VITALS: BP 124/70
[2020-12-25 22:00] VITALS: BP 143/88
[2020-12-26 04:16] LABS: HEPATITIS A IgG TOTAL Negative (Negative); HEPATITIS B CORE ANTIBODY IGG Negative (Negative)
[2020-12-26] MEDS: IBUPROFEN 600MG TAB PO PRN ×2 (05:10→22:41)
[2020-12-26] MEDS: VANCOMYCIN HCL 1,000 MG, VIAL MATE ADAPTER 1 EACH in NS 250 ML IV SCH ×3 (05:10→20:02)
[2020-12-26] MEDS: SODIUM CHLORIDE 0.9% INJ 10 ML SYR IV SCH ×2 (05:11→15:43)
[2020-12-26 05:37] LABS: HEMATOCRIT 29.3 % (36.0-47.0); HEMOGLOBIN 9.2 g/dl (12.0-15.5); MEAN CORPUSCULAR HEMOGLOBIN 27.7 pg (27.0-33.0); MEAN CORPUSCULAR HGB CONC 31.4 g/dl (32.0-36.5); MEAN CORPUSCULAR VOLUME 88.3 fl (80.0-96.0); PLATELET COUNT, AUTOMATED 218 10^3/uL (150-450); RED BLOOD COUNT 3.32 10^6/uL (4.00-5.40); WHITE BLOOD COUNT 9.8 10^3/uL (4.0-10.0)
[2020-12-26 05:54] LABS: BLOOD UREA NITROGEN 9 MG/DL (7-18); CALCIUM LEVEL 8.3 MG/DL (8.5-10.1); CARBON DIOXIDE LEVEL 26 MEQ/L (21-32); CHLORIDE LEVEL 110 MEQ/L (98-107); CREATININE FOR GFR 0.65 MG/DL (0.55-1.30); GLOMERULAR FILTRATION RATE > 60.0 (>58); GLUCOSE, FASTING 103 MG/DL (70-100); POTASSIUM SERUM 3.6 MEQ/L (3.5-5.1); SODIUM LEVEL 143 MEQ/L (136-145)
[2020-12-26 06:00] VITALS: BP 152/95
--- NOTE | 2020-12-26 07:57 | IPN ---
INFECTIOUS DISEASE PROGRESS NOTE DATE: 12/25/2020 SUBJECTIVE: Rachel seems to be doing better today. She is in a better mood. She has had no fever or chills. She has a mild cough which she relates to her asthma. No nausea, vomiting or diarrhea. She has a transesophageal echocardiogram last night which showed a tricuspid vegetation measuring 1 by 0.5 cm with moderate tricuspid regurgitation. OBJECTIVE: VITAL SIGNS: Temperature is 98.6, pulse 80, respirations 16, blood pressure 124/70, 02 sat 95% on room air. She has been afebrile for 4 days. PHYSICAL EXAMINATION: GENERAL APPEARANCE: She is alert, oriented, in no acute distress. NECK: Supple with no jugular venous distention. HEART: Normal S1, S2. No murmurs, rubs or gallops appreciated. LUNGS: Clear. No rales, rhonchi or wheezes. ABDOMEN: Soft, nontender, no splenomegaly. EXTREMITIES: No edema. SKIN: No rashes. MEDICATIONS: 1. Vancomycin one gram IV every 8 hours. 2. Ibuprofen 600 mg q. 6 p.r.n. LABORATORY STUDIES: White count 10.5, hemoglobin 9.1, hematocrit 28.4, platelet count 212, ESR 58. Sodium 140, potassium 3.8, chloride 107, bicarbonate 29, BUN 11, creatinine 0.72, glucose 98, calcium 8, CRP 1.55. Hepatitis A IgM negative. B-surface antigen negative. B-surface antibody pending. B-core IgG pending. Hepatitis C RNA positive. Blood cultures from 12/22 2 sets are negative. No growth after 72 hours. IMPRESSION: 1. Tricuspid valve endocarditis with MRSA bacteremia on IV Vancomycin, doing well. The patient has defervesced. Vegetation is 1 by 0.5 cm on the tricuspid valve with moderate regurgitation. No sign of right sided heart failure. Vancomycin trough is 12.5. The patient will need 4 weeks of IV antibiotics. She could have probably 2 weeks in the hospital from 12/22 to 01/05 with Vancomycin and then a couple doses of outpatient Delvance. 2. Hepatitis C - The patient will need further workup as an outpatient including Hepatitis C genotype viral load and fibrosis score. The patient states she never shared needles and is not sure how she could have contracted Hepatitis C. I did advise her to get her fianc tested as well. 3. History of intravenous drug abuse including Alecia - The patient will remain abstinent. PLAN: 1. Continue IV Vancomycin. End of therapy is scheduled to be on January 19. 2. We will plan for 2 weeks of IV Vancomycin until the and then 2 doses of Delvance as an outpatient.
[2020-12-26] MEDS ORDERED: POTASSIUM CHLORIDE 10 MEQ SR TABLET PO ONE (09:00)
[2020-12-26 13:33] LABS: VANCOMYCIN LEVEL TROUGH 15.5 UG/ML (10.0-20.0)
[2020-12-26 14:00] VITALS: BP 124/89
--- NOTE | 2020-12-26 15:02 | IPNPDOC ---
Text Note Date of Service The patient was seen on 12/26/20. NOTE Subjective: No new acute events overnight. Patient denies fever, chills, [place], vomiting diarrhea dysuria Objective: GENERAL APPEARANCE: NAD HEENT: no scleral icterus, no JVD, EOMI CARDIOVASCULAR: S1S2 LUNGS: CTA ABDOMEN: soft & not tender w palpitation MUSCULOSKELETAL: no cyanosis, no swelling INTEGUMENT: no generalized pallor NEUROLOGICAL: cranial nerve function from 2-12 intact intact, follows commands, speech not dysarthric Assessment and plan Patient is 45 years old female with past medical history of IV polysubstance abuse admitted to the hospital with endocarditis Acute tricuspid valve endocarditis/MRSA bacteremia ID recommended to continue vancomycin till 01/05 and then Delvance 2 injections in the outpatient settings Hepatitis C Follow-up with ID specialist in the outpatient settings Polysubstance abuse Social work on board Normocytic anemia Most likely anemia of chronic diseases Iron low. Iron supplementation We will check B12, folate and stool for occult blood Hypokalemia Resolved VS,Fishbone, I+O VS, Fishbone, I+O Laboratory Tests 12/26/20 05:13 Vital Signs Date Time Temp Pulse Resp B/P (MAP) Pulse Ox O2 Delivery O2 Flow Rate FiO2 12/26/20 06:00 99.0 90 18 152/95 (114) 98 Room Air I&O- Last 24 Hours up to 6 AM 12/26/20 06:00 Intake Total 1870 ml Output Total 900 ml Balance 970 ml EL SEGURA DO Dec 26, 2020 15:02
[2020-12-26 16:06] LABS: FOLATE 5.6 NG/ML
[2020-12-26] MEDS: SODIUM CHLORIDE 0.9% INJ 10 ML SYR IV PRN (21:37)
[2020-12-26 21:39] VITALS: BP 149/96
[2020-12-26 23:39] VITALS: BP 140/91
[2020-12-27] MEDS: VANCOMYCIN HCL 1,000 MG, VIAL MATE ADAPTER 1 EACH in NS 250 ML IV SCH (05:23)
[2020-12-27] MEDS: SODIUM CHLORIDE 0.9% INJ 10 ML SYR IV SCH ×2 (05:23→18:03)
[2020-12-27 05:27] VITALS: BP 117/64
[2020-12-27 05:40] LABS: HEMATOCRIT 28.9 % (36.0-47.0); HEMOGLOBIN 9.1 g/dl (12.0-15.5); MEAN CORPUSCULAR HEMOGLOBIN 28.1 pg (27.0-33.0); MEAN CORPUSCULAR HGB CONC 31.5 g/dl (32.0-36.5); MEAN CORPUSCULAR VOLUME 89.2 fl (80.0-96.0); PLATELET COUNT, AUTOMATED 220 10^3/uL (150-450); RED BLOOD COUNT 3.24 10^6/uL (4.00-5.40); WHITE BLOOD COUNT 7.9 10^3/uL (4.0-10.0)
[2020-12-27 06:02] LABS: BLOOD UREA NITROGEN 12 MG/DL (7-18); CALCIUM LEVEL 8.1 MG/DL (8.5-10.1); CARBON DIOXIDE LEVEL 31 MEQ/L (21-32); CHLORIDE LEVEL 109 MEQ/L (98-107); CREATININE FOR GFR 0.85 MG/DL (0.55-1.30); GLOMERULAR FILTRATION RATE > 60.0 (>58); GLUCOSE, FASTING 92 MG/DL (70-100); POTASSIUM SERUM 4.1 MEQ/L (3.5-5.1); SODIUM LEVEL 142 MEQ/L (136-145)
[2020-12-27] MEDS: SODIUM CHLORIDE 0.9% INJ 10 ML SYR IV PRN ×4 (07:34→22:26)
[2020-12-27] MEDS: IBUPROFEN 600MG TAB PO PRN ×2 (11:22→21:15)
[2020-12-27] MEDS: VANCOMYCIN HCL 750 MG, VIAL MATE ADAPTER 1 EACH in NS 250 ML IV SCH ×2 (13:46→21:14)
[2020-12-27] MEDS ORDERED: NON-FORMULARY COMPOUNDED MEDICATION IM ONE (15:40)
--- NOTE | 2020-12-27 21:57 | IPN ---
PROGRESS NOTE DATE: 12/27/2020 SUBJECTIVE: Rachel seems to be doing well. She continues complaining of night sweats, but otherwise has no major complaints. She has a chronic cough from her asthma, which is unchanged. No chest pain. No fever or chills. No nausea, vomiting or diarrhea. Her generalized achiness has improved. She does not wear any gowns because her night sweats bother her and she gets very sticky. She would like her bed sheets changed. She states they haven't been changed in a while. LABORATORY DATA: White count 7.9, hemoglobin 9.1, hematocrit 28.9, platelets 220,000. Sodium 142, potassium 4.1, chloride 109, bicarb 31, BUN 12, creatinine 0.85, glucose 92, calcium 8.1. Vitamin B12 407. Folate 5.6. Hepatitis B, A antibody negative. B surface antibody negative. Hepatitis B core IGG negative. PHYSICAL EXAMINATION: VITAL SIGNS: Temperature 98.5, pulse 87, respirations 20, blood pressure 117/64, O2 sat 97% on room air. HEART: Normal S1, S2. No murmurs appreciated. LUNGS: A few expiratory wheezes at the bases. No rales or rhonchi. ABDOMEN: Soft, nontender. No hepatosplenomegaly. EXTREMITIES: No cyanosis, clubbing or edema. No calf tenderness. IMPRESSION: 1. MRSA endocarditis at the tricuspid valve: Doing well on I.V. Vancomycin currently at 750 mg every 8 hours. First negative blood cultures were on 12/22/2020. Patient will be treated with I.V. Vancomycin until 01/05/2021 and then switched to Dalvance. 2. Hepatitis C: Will need to obtain a viral load as an outpatient as well as a genotype and fibrosis score. Patient is not immune to Hepatitis A and B. Will recommend vaccination with Twinrix. 3. History of I.V. Alecia drug abuse: The patient will remain abstinent. PLAN: Continue I.V. Vancomycin at current dose. Keep Vancomycin trough between 15 and 20. Twinrix vaccination while in the hospital.
[2020-12-28] MEDS: SODIUM CHLORIDE 0.9% INJ 10 ML SYR IV SCH ×2 (05:27→18:42)
[2020-12-28] MEDS: VANCOMYCIN HCL 750 MG, VIAL MATE ADAPTER 1 EACH in NS 250 ML IV SCH ×3 (05:27→20:58)
[2020-12-28 05:45] LABS: HEMATOCRIT 29.7 % (36.0-47.0); HEMOGLOBIN 9.2 g/dl (12.0-15.5); MEAN CORPUSCULAR HEMOGLOBIN 27.9 pg (27.0-33.0); PLATELET COUNT, AUTOMATED 221 10^3/uL (150-450); WHITE BLOOD COUNT 6.5 10^3/uL (4.0-10.0)
[2020-12-28 06:00] VITALS: BP 132/78
[2020-12-28 06:12] LABS: BLOOD UREA NITROGEN 18 MG/DL (7-18); CALCIUM LEVEL 8.7 MG/DL (8.5-10.1); CARBON DIOXIDE LEVEL 31 MEQ/L (21-32); CHLORIDE LEVEL 106 MEQ/L (98-107); CREATININE FOR GFR 0.72 MG/DL (0.55-1.30); GLOMERULAR FILTRATION RATE > 60.0 (>58); GLUCOSE, FASTING 87 MG/DL (70-100); SODIUM LEVEL 139 MEQ/L (136-145)
[2020-12-28] MEDS: SODIUM CHLORIDE 0.9% INJ 10 ML SYR IV PRN ×2 (06:39→22:09)
[2020-12-28] MEDS ORDERED: [UNRECOGNIZED DRUG - OTHER] IM ONE (15:00)
[2020-12-28] MEDS ORDERED: HEPATITIS B VACCINE IM ONE (15:00)
[2020-12-28] MEDS: IBUPROFEN 600MG TAB PO PRN (20:58)
[2020-12-29] MEDS: VANCOMYCIN HCL 750 MG, VIAL MATE ADAPTER 1 EACH in NS 250 ML IV SCH ×3 (05:09→21:56)
[2020-12-29 06:00] VITALS: BP 132/78
[2020-12-29] MEDS: SODIUM CHLORIDE 0.9% INJ 10 ML SYR IV SCH ×2 (06:16→17:17)
[2020-12-29] MEDS: SODIUM CHLORIDE 0.9% INJ 10 ML SYR IV PRN (06:17)
[2020-12-29] MEDS: IBUPROFEN 600MG TAB PO PRN (17:17)
[2020-12-30] MEDS: VANCOMYCIN HCL 750 MG, VIAL MATE ADAPTER 1 EACH in NS 250 ML IV SCH ×3 (05:02→20:16)
[2020-12-30] MEDS: SODIUM CHLORIDE 0.9% INJ 10 ML SYR IV SCH ×2 (05:03→18:41)
[2020-12-30] MEDS: IBUPROFEN 600MG TAB PO PRN (05:03)
[2020-12-30 06:00] VITALS: BP 129/69
[2020-12-30 10:55] LABS: CREATININE FOR GFR 0.83 MG/DL (0.55-1.30); GLOMERULAR FILTRATION RATE > 60.0 (>58)
[2020-12-30] MEDS: SODIUM CHLORIDE 0.9% INJ 10 ML SYR IV PRN ×2 (14:39→20:17)
[2020-12-31] MEDS: SODIUM CHLORIDE 0.9% INJ 10 ML SYR IV SCH ×2 (05:04→18:00)
[2020-12-31] MEDS: VANCOMYCIN HCL 750 MG, VIAL MATE ADAPTER 1 EACH in NS 250 ML IV SCH ×3 (05:04→20:48)
[2020-12-31 06:00] VITALS: BP 132/79
[2020-12-31] MEDS: IBUPROFEN 600MG TAB PO PRN (14:01)
[2020-12-31] MEDS: SODIUM CHLORIDE 0.9% INJ 10 ML SYR IV PRN ×2 (15:22→20:49)
[2021-01-01 05:58] VITALS: BP 113/77
[2021-01-01] MEDS: VANCOMYCIN HCL 750 MG, VIAL MATE ADAPTER 1 EACH in NS 250 ML IV SCH ×3 (06:02→21:13)
[2021-01-01] MEDS: SODIUM CHLORIDE 0.9% INJ 10 ML SYR IV SCH ×2 (06:03→17:05)
[2021-01-01] MEDS: SODIUM CHLORIDE 0.9% INJ 10 ML SYR IV PRN ×3 (07:30→17:06)
[2021-01-01] MEDS ORDERED: ALBUTEROL 90 MCG/ACT 8GM HFA INHALER INH PRN (21:35)
--- NOTE | 2021-01-01 22:05 | IPN ---
INFECTIOUS DISEASE PROGRESS NOTE DATE: 01/01/2021 SUBJECTIVE: Rachel seems to be doing well. She stated that her night sweats have decreased in intensity and frequency. She has had no fever or chills. No nausea, vomiting or diarrhea. Her appetite is good. She is on Vancomycin 750 mg I.V. every 8 hours. Vancomycin trough was done on 12/31/2020 and was 12.8. Blood cultures were negative on 12/22/2020 times two sets. PHYSICAL EXAMINATION: VITAL SIGNS: Temperature 96, pulse 84, respirations 18, blood pressure 113/77, O2 sat 97% on room air. HEART: Normal S1, S2. No murmurs, rubs or gallops. LUNGS: Clear. No wheezes, rales or rhonchi. ABDOMEN: Soft, nontender. No hepatosplenomegaly. EXTREMITIES: No cyanosis, clubbing or edema. PROBLEMS: 1. MRSA endocarditis: On I.V. Vancomycin, doing well. Tricuspid valve 1 cm vegetation. 2. Chronic Hepatitis C: Patient received Twinrix vaccination on 12/28/2020 and she will need her next dose on 01/28/2021. 3. Asthma: Patient would like to have her Symbicort prescribed as well as Albuterol p.r.n., which will be ordered. IMPRESSION: MRSA endocarditis on I.V. Vancomycin with negative culture on 12/22/2020. The patient will continue with I.V. Vancomycin until 01/05/2021, then she could be discharged on I.V. Dalvance times two doses to finish course of endocarditis treatment. Will obtain a CBC, basic profile, CRP, ESR on . PLAN: Labs on as previously mentioned. Hepatitis C, RNA genotype, fibrosis score will also be obtained so she could be treated for Hepatitis C as an outpatient.
--- NOTE | 2021-01-02 02:53 | IPNPDOC ---
Text Note Date of Service The patient was seen on 01/02/21. NOTE Alerted by nursing staff at approx 0230 that patient was agitated and requesting to LEAVE AGAINST MEDICAL ADVICE. I saw the patient at this time who told me that she was anxious and felt helpless sitting in the hospital and believes that her apartment is being broken into, and that her is going to [facility] tomorrow. Patient tells me that she would feel better if she were not at the hospital. I explained to the patient at this time the risks of her leaving AGAINST MEDICAL ADVICE, such as worsening of her condition and potential complications of bacterial endocarditis such as sepsis, septic emboli, worsening heart disease, and . Patient understood these risks and still wished to leave AGAINST MEDICAL ADVICE. Paperwork will be signed. VS,Reneee, I+O VS, Reneee, I+O Vital Signs Date Time Temp Pulse Resp B/P (MAP) Pulse Ox O2 Delivery O2 Flow Rate FiO2 01/01/21 05:58 96.0 84 18 113/77 (89) 97 Room Air I&O- Last 24 Hours up to 6 AM 01/02/21 06:00 Intake Total 550 ml Output Total 350 ml Balance 200 ml STEPHANI ARAYA Jan 02, 2021 02:53
[2021-01-02] MEDS ORDERED: SYMBICORT 160/4.5MCG INHALER 6GM INH SCH (08:00)
== END 2021-01-02 03:15 | disposition left against medical advice (07) | DRG 289 ==
LOC: M ED 14:49 → M 4MAIN 15:50 → M ED INP 15:50 → M MSPAV 15:50 → UNDOADMIN 15:50 → M OBS 15:50 → M MSPAV 12-20 02:00
PROVIDERS: ADMIT Internal Medicine; ATTEND Internal Medicine
PROC: 02HV33Z Insertion of Infusion Device into Superior Vena Cava, Percutaneous Approach (ICD-10-PCS; principal; 2020-12-24 09:02)
DX: I33.0 Acute and subacute infective endocarditis (principal); R78.81 Bacteremia; Z87.820 Personal history of traumatic brain injury; F43.10 Post-traumatic stress disorder, unspecified; F41.9 Anxiety disorder, unspecified; F32.9 Major depressive disorder, single episode, unspecified; D64.9 Anemia, unspecified; E87.6 Hypokalemia; Z20.822 Contact with and (suspected) exposure to COVID-19; B19.20 Unspecified viral hepatitis C without hepatic coma; A49.02 Methicillin resistant Staphylococcus aureus infection, unspecified site; J45.909 Unspecified asthma, uncomplicated; F16.10 Hallucinogen abuse, uncomplicated

== ENCOUNTER 2021-05-22 20:01 | Emergency (ER) | payer MEDICARE, MEDICAID ==
[~2021-05-22] VITALS: Ht 157.5 cm; Wt 53.6 kg
[~2021-05-22 20:01] MED LIST changes: +ACET-907 PO; +IBUP-1720 PO
[2021-05-22 21:36] LABS: RSV AMPLIFICATION NEGATIVE (NEGATIVE)
[2021-05-23 00:22] LABS: BASO % 0.7 % (0.0-1.0); EOS # 0.1 10^3/uL (0.0-0.5); HEMATOCRIT 32.6 % (36.0-47.0); HEMOGLOBIN 10.7 g/dl (12.0-15.5); LYMPH # 1.8 10^3/uL (1.5-5.0); LYMPH % 29.8 % (24.0-44.0); MEAN CORPUSCULAR HEMOGLOBIN 27.6 pg (27.0-33.0); MEAN CORPUSCULAR HGB CONC 32.8 g/dl (32.0-36.5); MEAN CORPUSCULAR VOLUME 84.2 fl (80.0-96.0); MONO # 0.6 10^3/uL (0.0-0.8); MONO % 10.1 % (2.0-8.0); NEUTROPHILS # 3.5 10^3/uL (1.5-8.5); NEUTROPHILS % 57.2 % (36.0-66.0); PLATELET COUNT, AUTOMATED 232 10^3/uL (150-450); RED BLOOD COUNT 3.87 10^6/uL (4.00-5.40); WHITE BLOOD COUNT 6.1 10^3/uL (4.0-10.0)
[2021-05-23 00:46] LABS: ERYTHROCYTE SEDIMENTATION RATE 34 mm/hr (0-20)
[2021-05-23 01:47] LABS: CARBON DIOXIDE LEVEL 24 MEQ/L (21-32); CHLORIDE LEVEL 108 MEQ/L (98-107); GLUCOSE, FASTING 90 MG/DL (70-100); POTASSIUM SERUM 3.8 MEQ/L (3.5-5.1); SODIUM LEVEL 139 MEQ/L (136-145)
[2021-05-23 02:00] VITALS: BP 148/76
[2021-05-23 02:25] LABS: BLOOD UREA NITROGEN 8 MG/DL (7-18); C REACTIVE PROTEIN QUANTITATIV < 0.30 MG/DL (0.00-0.30); CALCIUM LEVEL 8.6 MG/DL (8.5-10.1); CREATININE FOR GFR 1.01 MG/DL (0.55-1.30); GLOMERULAR FILTRATION RATE > 60.0 (>58)
[2021-05-24] MEDS ORDERED: LIDO3CRE14 TOP (09:53)
== END 2021-05-23 03:09 | disposition home or self-care (01) ==
LOC: M ED 20:01
DX: R51.9 Headache, unspecified (principal); Z86.19 Personal history of other infectious and parasitic diseases; Z86.14 Personal history of Methicillin resistant Staphylococcus aureus infection; F12.10 Cannabis abuse, uncomplicated; F19.10 Other psychoactive substance abuse, uncomplicated

== ENCOUNTER 2021-05-23 20:22 | Emergency (ER) | payer OTHER, MEDICAID ==
[~2021-05-23] VITALS: Ht 157.5 cm; Wt 58.8 kg
[2021-05-24] MEDS ORDERED: NAPROXEN 250 MG TAB PO ONE (08:55)
[2021-05-24] MEDS ORDERED: LIDOCAINE 5% (LIDODERM) PATCH TD ONE (08:55)
[2021-05-24] MEDS ORDERED: ACETAMINOPHEN 500 MG TAB PO ONE (08:55)
[2021-05-24 09:16] LABS: BASO % 0.9 % (0.0-1.0); EOS # 0.1 10^3/uL (0.0-0.5); EOS % 2.8 % (0.0-3.0); HEMATOCRIT 36.5 % (36.0-47.0); HEMOGLOBIN 11.8 g/dl (12.0-15.5); LYMPH # 1.7 10^3/uL (1.5-5.0); LYMPH % 35.6 % (24.0-44.0); MEAN CORPUSCULAR HEMOGLOBIN 27.4 pg (27.0-33.0); MEAN CORPUSCULAR HGB CONC 32.3 g/dl (32.0-36.5); MEAN CORPUSCULAR VOLUME 84.9 fl (80.0-96.0); MONO # 0.6 10^3/uL (0.0-0.8); MONO % 11.9 % (2.0-8.0); NEUTROPHILS # 2.3 10^3/uL (1.5-8.5); NEUTROPHILS % 48.6 % (36.0-66.0); PLATELET COUNT, AUTOMATED 226 10^3/uL (150-450); WHITE BLOOD COUNT 4.7 10^3/uL (4.0-10.0)
[2021-05-24] MEDS ORDERED: LIDO3CRE14 TOP (09:53)
[2021-05-24 10:04] VITALS: BP 136/80
[2021-05-24] MEDS ORDERED: **NOTE PATIENT COMMENT** MISC XX ONE (21:00)
== END 2021-05-24 10:04 | disposition home or self-care (01) ==
LOC: M ED 20:22
DX: R07.89 Other chest pain (principal); Z86.73 Personal history of transient ischemic attack (TIA), and cerebral infarction without residual deficits; J44.9 Chronic obstructive pulmonary disease, unspecified

== ENCOUNTER 2021-12-31 23:51 | Observation (INO) | payer OTHER, MEDICAID ==
[~2021-12-31] VITALS: Ht 160 cm; Wt 62.2 kg
[~2021-12-31 23:51] MED LIST changes: +LIDO3CRE14 TOP
[2022-01-01 01:40] LABS: BASO % 0.3 % (0.0-1.0); EOS # 0.1 10^3/uL (0.0-0.5); EOS % 1.5 % (0.0-3.0); HEMATOCRIT 34.5 % (36.0-47.0); HEMOGLOBIN 11.2 g/dl (12.0-15.5); LYMPH # 2.1 10^3/uL (1.5-5.0); LYMPH % 31.2 % (24.0-44.0); MEAN CORPUSCULAR HEMOGLOBIN 27.7 pg (27.0-33.0); MEAN CORPUSCULAR HGB CONC 32.5 g/dl (32.0-36.5); MEAN CORPUSCULAR VOLUME 85.2 fl (80.0-96.0); MONO # 0.6 10^3/uL (0.0-0.8); MONO % 9.6 % (2.0-8.0); NEUTROPHILS # 3.8 10^3/uL (1.5-8.5); NEUTROPHILS % 57.1 % (36.0-66.0); PLATELET COUNT, AUTOMATED 204 10^3/uL (150-450); RED BLOOD COUNT 4.05 10^6/uL (4.00-5.40); WHITE BLOOD COUNT 6.6 10^3/uL (4.0-10.0)
[2022-01-01 02:06] LABS: CK-MB VALUE MASS 2.1 NG/ML (<3.6); MB/CK RELATIVE INDEX 0.8 (< OR =4)
[2022-01-01 02:11] LABS: CALCIUM LEVEL 8.9 MG/DL (8.5-10.1); CREATININE FOR GFR 1.62 MG/DL (0.55-1.30); GLOMERULAR FILTRATION RATE 36.6 (>58); POTASSIUM SERUM 3.6 MEQ/L (3.5-5.1); THYROID STIMULATING HORMONE 2.13 uIU/ML (0.358-3.740)
[2022-01-01] MEDS ORDERED: NS 1,000 ML IV SCH (03:30)
[2022-01-01] MEDS ORDERED: VITMTA PO (05:41)
[2022-01-01] MEDS ORDERED: HOME MED LIST COMPLETE! XX SCH (05:45)
[2022-01-01] MEDS ORDERED: ACETAMINOPHEN TAB 650MG DOSE (2X325MG) PO PRN (06:20)
[2022-01-01] MEDS: NS 1,000 ML IV SCH ×2 (07:11→15:55)
[2022-01-01 07:27] LABS: INR 0.98; PROTHROMBIN TIME 13.4 SECONDS (12.7-14.5)
[2022-01-01 07:28] LABS: PARTIAL THROMBOPLASTIN TIME 26.8 SECONDS (25.9-37.0)
[2022-01-01 07:38] LABS: ALBUMIN 3.4 GM/DL (3.2-5.2); BILIRUBIN,TOTAL 0.3 MG/DL (0.2-1.0); CALCIUM LEVEL 8.7 MG/DL (8.5-10.1); CREATININE FOR GFR 1.36 MG/DL (0.55-1.30); GLOMERULAR FILTRATION RATE 44.8 (>58); POTASSIUM SERUM 3.4 MEQ/L (3.5-5.1)
[2022-01-01] MEDS: MULTIVITAMINS/MINERALS THERAP 1 TAB PO SCH (09:00)
[2022-01-01] MEDS: HEPARIN SOD (PORCINE) 5000UNITS/ML 1ML VIAL/SYRINGE SQ SCH ×2 (09:49→21:51)
[2022-01-01 14:12] LABS: AMPHETAMINES LEVEL URINE NEGATIVE (NEGATIVE); BARBITURATES URINE NEGATIVE (NEGATIVE); BENZODIAZEPINES URINE NEGATIVE (NEGATIVE); CANNABINOIDS URINE POSITIVE (NEGATIVE); COCAINE METABOLITE URINE POSITIVE (NEGATIVE); METHADONE URINE NEGATIVE (NEGATIVE); OPIATES URINE NEGATIVE (NEGATIVE); PHENCYCLIDINE URINE NEGATIVE (NEGATIVE)
[2022-01-01 16:35] VITALS: BP 179/98
[2022-01-01] MEDS ORDERED: POTASSIUM CHLORIDE 10MEQ SR TABLET PO ONE (20:00)
[2022-01-01] MEDS: NS 0.45% 1,000 ML IV SCH (21:50)
[2022-01-01 22:00] VITALS: BP 171/95
[2022-01-02 06:00] VITALS: BP 152/95
[2022-01-02 06:40] LABS: HEMATOCRIT 35.4 % (36.0-47.0); HEMOGLOBIN 11.1 g/dl (12.0-15.5); MEAN CORPUSCULAR HEMOGLOBIN 26.7 pg (27.0-33.0); MEAN CORPUSCULAR HGB CONC 31.4 g/dl (32.0-36.5); MEAN CORPUSCULAR VOLUME 85.3 fl (80.0-96.0); PLATELET COUNT, AUTOMATED 183 10^3/uL (150-450); RED BLOOD COUNT 4.15 10^6/uL (4.00-5.40); WHITE BLOOD COUNT 4.2 10^3/uL (4.0-10.0)
[2022-01-02 07:02] LABS: ALBUMIN 3.5 GM/DL (3.2-5.2); ALT/SGPT 218 U/L (12-78); BILIRUBIN,TOTAL 0.3 MG/DL (0.2-1.0); BLOOD UREA NITROGEN 8 MG/DL (7-18); CALCIUM LEVEL 8.8 MG/DL (8.5-10.1); CARBON DIOXIDE LEVEL 25 MEQ/L (21-32); CHLORIDE LEVEL 109 MEQ/L (98-107); GLOMERULAR FILTRATION RATE > 60.0 (>58); GLUCOSE, FASTING 97 MG/DL (70-100); POTASSIUM SERUM 3.9 MEQ/L (3.5-5.1); SODIUM LEVEL 139 MEQ/L (136-145); TOTAL PROTEIN 7.3 GM/DL (6.4-8.2)
[2022-01-02] MEDS: NS 0.45% 1,000 ML IV SCH ×2 (08:06→16:00)
[2022-01-02] MEDS: MULTIVITAMINS/MINERALS THERAP 1 TAB PO SCH (08:06)
[2022-01-02] MEDS: HEPARIN SOD (PORCINE) 5000UNITS/ML 1ML VIAL/SYRINGE SQ SCH (08:06)
[2022-01-02 14:00] VITALS: BP 154/90
[2022-01-02] MEDS ORDERED: IBUPROFEN 400MG TAB PO ONE (16:20)
== END 2022-01-02 17:13 | disposition home or self-care (01) ==
LOC: M ED 23:51 → M ED INP 23:52 → ENRESERV 01-01 15:27 → M MSPAV 01-01 16:35
PROVIDERS: ADMIT Internal Medicine; ATTEND Internal Medicine
DX: R55 Syncope and collapse (principal); R00.2 Palpitations; N17.9 Acute kidney failure, unspecified; N39.0 Urinary tract infection, site not specified; B96.20 Unspecified Escherichia coli [E. coli] as the cause of diseases classified elsewhere
CPT/HCPCS: 36415; 71046; 80048; 80053; 80307; 82550; 82553; 84443; 84484; 84702; 85025; 85027; 85610; 85730; 87040; 87088; 87186; 87486; 87581; 87633; 87798; 93005; 93041; 93306; 94760; 96360; 96361; 96372; 99285; G0378; J1644

== ENCOUNTER 2023-01-16 20:03 | Emergency (ER) | payer OTHER, MEDICAID ==
[~2023-01-16] VITALS: Ht 160 cm; Wt 57.6 kg
[~2023-01-16 20:03] MED LIST changes: +ALBU6.7H6 INH; -PROV108A INH; +VITMTA PO
[2023-01-16] MEDS ORDERED: IBUPROFEN 600MG TAB PO ONE (22:50)
[2023-01-16] MEDS ORDERED: IBUP-1022 PO (23:55)
[2023-01-17 00:19] VITALS: BP 130/70; TEMP 98.7; O2SAT 100
== END 2023-01-17 00:25 | disposition home or self-care (01) ==
LOC: M ED 20:03
DX: S63.8X1A Sprain of other part of right wrist and hand, initial encounter (principal); Y92.009 Unspecified place in unspecified non-institutional (private) residence as the place of occurrence of the external cause; Y93.E3 Activity, vacuuming; I10 Essential (primary) hypertension; J45.909 Unspecified asthma, uncomplicated

== ENCOUNTER 2023-08-21 19:42 | Inpatient (IN) | payer MEDICAID, OTHER ==
[~2023-08-21] VITALS: Ht 160 cm; Wt 58.8 kg
[~2023-08-21 19:42] MED LIST changes: +IBUP-1022 PO
[2023-08-21 20:26] LABS: BASO % 0.4 % (0.0-1.0); EOS # 0.1 10^3/uL (0.0-0.5); HEMATOCRIT 39.2 % (36.0-47.0); HEMOGLOBIN 13.6 g/dl (12.0-15.5); LYMPH % 25.3 % (24.0-44.0); MEAN CORPUSCULAR HEMOGLOBIN 31.3 pg (27.0-33.0); MEAN CORPUSCULAR HGB CONC 34.7 g/dl (32.0-36.5); MEAN CORPUSCULAR VOLUME 90.1 fl (80.0-96.0); MONO # 0.8 10^3/uL (0.0-0.8); MONO % 10.8 % (2.0-8.0); NEUTROPHILS # 4.9 10^3/uL (1.5-8.5); NEUTROPHILS % 62.2 % (36.0-66.0); PLATELET COUNT, AUTOMATED 210 10^3/uL (150-450); RED BLOOD COUNT 4.35 10^6/uL (4.00-5.40); WHITE BLOOD COUNT 7.8 10^3/uL (4.0-10.0)
[2023-08-21] MEDS: NS 1,000 ML IV ONE (20:38)
[2023-08-21 20:42] LABS: D-DIMER QUANT < 0.27 ug/mL (<0.5); INR 1.04; PARTIAL THROMBOPLASTIN TIME 24.2 SECONDS (24.8-34.2); PROTHROMBIN TIME 13.3 SECONDS (12.5-14.5)
[2023-08-21 20:59] LABS: CK-MB VALUE MASS < 1.0 NG/ML (<3.6); LIPASE 51 U/L (12-53)
[2023-08-21 21:00] LABS: C REACTIVE PROTEIN QUANTITATIV < 0.40 MG/DL (<1.0)
[2023-08-21 21:01] LABS: ALBUMIN 3.8 G/DL (3.2-5.2); ALKALINE PHOSPHATASE 72 U/L (46-116); ALT/SGPT 120 U/L (7.0-40); AST/SGOT 57 U/L (<34); BILIRUBIN,DIRECT < 0.1 MG/DL (<0.4); BILIRUBIN,TOTAL 0.3 MG/DL (0.3-1.2); BLOOD UREA NITROGEN 21 MG/DL (9-23); CARBON DIOXIDE LEVEL 26 MMOL/L (20-31); CHLORIDE LEVEL 106 MMOL/L (98-107); CPK CREATINE PHOSPHOKINASE 120 U/L (34-145); CREATININE FOR GFR 0.84 MG/DL (0.55-1.30); GLOMERULAR FILTRATION RATE > 60.0 (>58); GLUCOSE, FASTING 100 MG/DL (60-100); MB/CK RELATIVE INDEX 0.83 (< OR =4); POTASSIUM SERUM 4.4 MMOL/L (3.5-5.1); SODIUM LEVEL 138 MMOL/L (136-145); TOTAL PROTEIN 7.3 G/DL (5.7-8.2)
[2023-08-21 21:03] LABS: THYROID STIMULATING HORMONE 2.255 uIU/ML (0.55-4.78)
[2023-08-21 21:04] LABS: FREE T4 0.84 NG/DL (0.89-1.76)
[2023-08-21 21:12] LABS: HCG, SERUM QUALITATIVE NEGATIVE (NEGATIVE)
[2023-08-21 21:19] LABS: RSV AMPLIFICATION NEGATIVE (NEGATIVE)
[2023-08-21] MEDS ORDERED: ASPIRIN 81MG CHEW TABLET PO ONE (22:05)
[2023-08-21 22:30] LABS: CK-MB VALUE MASS < 1.0 NG/ML (<3.6)
[2023-08-21 22:31] LABS: CPK CREATINE PHOSPHOKINASE 107 U/L (34-145); MB/CK RELATIVE INDEX 0.93 (< OR =4)
[2023-08-21] MEDS ORDERED: IBUP-1022 PO (22:49)
[2023-08-21] MEDS ORDERED: HOME MED LIST COMPLETE! XX SCH (22:50)
[2023-08-22] MEDS: METOCLOPRAMIDE INJ 10MG/2ML VIAL IV ONE
[2023-08-22] MEDS ORDERED: MOM 30ML SUSPENSION UDC PO PRN (01:15)
[2023-08-22] MEDS ORDERED: KETOROLAC 30 MG/ML 1ML VIAL IV PRN (01:15)
[2023-08-22] MEDS: KETOROLAC 30 MG/ML 1ML VIAL IV ONE (01:16)
[2023-08-22 04:00] VITALS: BP 168/112; TEMP 97.9; O2SAT 100
[2023-08-22] MEDS: ENOXAPARIN 40MG/0.4ML SYRINGE (J1650 PER 10MG) SC SCH (08:24)
[2023-08-22 09:13] VITALS: BP 128/78
[2023-08-22 14:00] VITALS: BP 129/78; TEMP 98.2; O2SAT 98
[2023-08-22] MEDS: MAG SULF 1GM/100ML (MAG RUN) 1 GM in IV 1 EA IV SCH (16:19)
[2023-08-22] MEDS: diphenhydrAMINE 25MG CAP PO ONE (16:19)
[2023-08-22] MEDS: predniSONE 20 MG TAB PO SCH (17:23)
[2023-08-22] MEDS: KETOROLAC 30 MG/ML 1ML VIAL IV PRN (17:24)
[2023-08-22 18:00] VITALS: BP 134/80; TEMP 98.1; O2SAT 97
[2023-08-22 18:14] LABS: BARBITURATES URINE NEGATIVE (NEGATIVE)
[2023-08-22 18:15] LABS: AMPHETAMINES LEVEL URINE NEGATIVE (NEGATIVE); BENZODIAZEPINES URINE NEGATIVE (NEGATIVE); COCAINE METABOLITE URINE NEGATIVE (NEGATIVE); METHADONE URINE NEGATIVE (NEGATIVE); OPIATES URINE NEGATIVE (NEGATIVE); PHENCYCLIDINE URINE NEGATIVE (NEGATIVE)
[2023-08-22 18:16] LABS: CANNABINOIDS URINE POSITIVE (NEGATIVE)
[2023-08-22] MEDS: VALPROATE SOD INJ 1,000 MG in D5W 50 ML IV ONE (18:20)
[2023-08-22 20:00] VITALS: BP 151/93; TEMP 98.8; O2SAT 97
[2023-08-22] MEDS: VANCOMYCIN HCL 1,000 MG, VIAL MATE ADAPTER 1 EACH in D5W 250 ML IV ONE (23:04)
[2023-08-22 23:40] VITALS: BP 143/74; TEMP 98.1; O2SAT 98
[2023-08-23 04:00] VITALS: BP 141/76; TEMP 97.7; O2SAT 98
[2023-08-23 05:40] LABS: HEMATOCRIT 39.4 % (36.0-47.0); HEMOGLOBIN 13.4 g/dl (12.0-15.5); MEAN CORPUSCULAR HEMOGLOBIN 30.4 pg (27.0-33.0); MEAN CORPUSCULAR VOLUME 89.3 fl (80.0-96.0); PLATELET COUNT, AUTOMATED 215 10^3/uL (150-450); RED BLOOD COUNT 4.41 10^6/uL (4.00-5.40); WHITE BLOOD COUNT 5.2 10^3/uL (4.0-10.0)
[2023-08-23 05:52] LABS: BLOOD UREA NITROGEN 23 MG/DL (9-23); CALCIUM LEVEL 8.9 MG/DL (8.5-10.1); CARBON DIOXIDE LEVEL 25 MMOL/L (20-31); CHLORIDE LEVEL 104 MMOL/L (98-107); CREATININE FOR GFR 0.82 MG/DL (0.55-1.30); GLOMERULAR FILTRATION RATE > 60.0 (>58); GLUCOSE, FASTING 135 MG/DL (60-100); POTASSIUM SERUM 4.2 MMOL/L (3.5-5.1); SODIUM LEVEL 137 MMOL/L (136-145)
[2023-08-23] MEDS: VANCOMYCIN HCL 1,000 MG, VIAL MATE ADAPTER 1 EACH in D5W 250 ML IV SCH (08:28)
[2023-08-23] MEDS ORDERED: PROHANCE 279.3MG/ML 5ML VIAL As Ordered ONE (09:32)
[2023-08-23 10:00] VITALS: BP 138/78; TEMP 98.2; O2SAT 95
[2023-08-23 12:29] LABS: PROCALCITONIN <0.04 ng/ml
[2023-08-23 14:00] VITALS: BP 152/87; TEMP 98.1; O2SAT 98
[2023-08-23] MEDS: ACETAMINOPHEN TAB 650MG DOSE (2X325MG) PO PRN (17:23)
[2023-08-23 18:00] VITALS: BP 154/83; TEMP 98.2; O2SAT 98
[2023-08-23 20:25] VITALS: BP 156/76; TEMP 98.8; O2SAT 97
[2023-08-23] MEDS: DIVALPROEX 500 MG TAB PO SCH (20:54)
[2023-08-23] MEDS ORDERED: DIVALPROEX 250MG TAB PO SCH (21:00)
[2023-08-23] MEDS: METOCLOPRAMIDE INJ 10MG/2ML VIAL IV PRN (22:16)
[2023-08-24] VITALS: BP 154/83; TEMP 98.2; O2SAT 98
[2023-08-24 04:00] VITALS: BP 158/87; TEMP 97.7; O2SAT 98
[2023-08-24] MEDS: VANCOMYCIN HCL 750 MG, VIAL MATE ADAPTER 1 EACH in D5W 250 ML IV SCH (09:36)
[2023-08-24 10:00] VITALS: BP 137/72; TEMP 98.2; O2SAT 97
[2023-08-24 14:00] VITALS: BP 121/71; TEMP 98.2; O2SAT 97
[2023-08-24 18:00] VITALS: BP 146/86; TEMP 99; O2SAT 97
[2023-08-24 19:29] LABS: HEPATITIS B CORE ANTIBODY IGM NEGATIVE (NEGATIVE)
[2023-08-24 19:49] LABS: HEPATITIS C VIRUS ABY INDEX > 11.00 INDEX (<0.8)
[2023-08-24 20:00] VITALS: BP 163/81; TEMP 98.1; O2SAT 97
[2023-08-25 02:15] VITALS: BP 149/68; TEMP 97.7; O2SAT 96
[2023-08-25 06:22] VITALS: BP 148/87; TEMP 98.1; O2SAT 97
[2023-08-25 07:59] LABS: BASO % 0.4 % (0.0-1.0); EOS % 0.2 % (0.0-3.0); HEMATOCRIT 35.2 % (36.0-47.0); LYMPH # 2.5 10^3/uL (1.5-5.0); LYMPH % 30.5 % (24.0-44.0); MEAN CORPUSCULAR HEMOGLOBIN 30.9 pg (27.0-33.0); MEAN CORPUSCULAR HGB CONC 34.1 g/dl (32.0-36.5); MEAN CORPUSCULAR VOLUME 90.7 fl (80.0-96.0); MONO # 0.6 10^3/uL (0.0-0.8); MONO % 7.2 % (2.0-8.0); NEUTROPHILS # 5.1 10^3/uL (1.5-8.5); NEUTROPHILS % 61.3 % (36.0-66.0); PLATELET COUNT, AUTOMATED 166 10^3/uL (150-450); RED BLOOD COUNT 3.88 10^6/uL (4.00-5.40); WHITE BLOOD COUNT 8.3 10^3/uL (4.0-10.0)
[2023-08-25 08:23] LABS: VANCOMYCIN LEVEL TROUGH 13.2 UG/ML (10.0-20.0)
[2023-08-25 08:24] LABS: BLOOD UREA NITROGEN 14 MG/DL (9-23); CALCIUM LEVEL 8.1 MG/DL (8.5-10.1); CARBON DIOXIDE LEVEL 28 MMOL/L (20-31); CHLORIDE LEVEL 107 MMOL/L (98-107); CREATININE FOR GFR 0.69 MG/DL (0.55-1.30); GLOMERULAR FILTRATION RATE > 60.0 (>58); GLUCOSE, FASTING 110 MG/DL (60-100); POTASSIUM SERUM 3.5 MMOL/L (3.5-5.1); SODIUM LEVEL 140 MMOL/L (136-145)
[2023-08-25 10:00] VITALS: BP 144/84; TEMP 98.2
[2023-08-25] MEDS: TROPICAMIDE 1% OPHTH SOLN 15ML OU ONE (11:00)
[2023-08-25] MEDS: CYCLOPENTOLATE 1% OPHTH SOLN 2ML BTL OU ONE (11:01)
[2023-08-25] MEDS: PHENYLEPHRINE 2.5% OPHTH SOL 2ML OU ONE (11:01)
[2023-08-25 14:00] VITALS: BP 143/84; TEMP 97.7; O2SAT 97
[2023-08-25] MEDS ORDERED: PROHANCE 279.3MG/ML 15ML VIAL As Ordered ONE (18:11)
[2023-08-25 19:02] LABS: FOLATE 13.49 NG/ML (>5.4); VITAMIN B12 LEVEL 346 PG/ML (211-911)
[2023-08-25 19:59] VITALS: BP 145/86; TEMP 97.9; O2SAT 98
[2023-08-25 20:56] LABS: HIV 1&2 SCREEN NEGATIVE (NEGATIVE)
[2023-08-26 05:40] VITALS: BP 116/85; TEMP 97.5; O2SAT 96
[2023-08-26 06:30] LABS: BASO % 0.3 % (0.0-1.0); EOS % 0.3 % (0.0-3.0); HEMATOCRIT 35.7 % (36.0-47.0); LYMPH # 2.5 10^3/uL (1.5-5.0); LYMPH % 28.6 % (24.0-44.0); MEAN CORPUSCULAR HEMOGLOBIN 30.5 pg (27.0-33.0); MEAN CORPUSCULAR HGB CONC 33.6 g/dl (32.0-36.5); MEAN CORPUSCULAR VOLUME 90.8 fl (80.0-96.0); MONO # 0.7 10^3/uL (0.0-0.8); MONO % 8.2 % (2.0-8.0); NEUTROPHILS # 5.4 10^3/uL (1.5-8.5); NEUTROPHILS % 62.3 % (36.0-66.0); PLATELET COUNT, AUTOMATED 164 10^3/uL (150-450); RED BLOOD COUNT 3.93 10^6/uL (4.00-5.40); WHITE BLOOD COUNT 8.8 10^3/uL (4.0-10.0)
[2023-08-26 06:59] LABS: BLOOD UREA NITROGEN 17 MG/DL (9-23); CALCIUM LEVEL 7.8 MG/DL (8.5-10.1); CARBON DIOXIDE LEVEL 27 MMOL/L (20-31); CHLORIDE LEVEL 107 MMOL/L (98-107); CREATININE FOR GFR 0.74 MG/DL (0.55-1.30); GLOMERULAR FILTRATION RATE > 60.0 (>58); GLUCOSE, FASTING 122 MG/DL (60-100); POTASSIUM SERUM 3.5 MMOL/L (3.5-5.1); SODIUM LEVEL 141 MMOL/L (136-145)
[2023-08-26] MEDS ORDERED: PRED20TA PO (10:50)
[2023-08-26] MEDS ORDERED: ACET1TAB55 PO (10:50)
[2023-08-26] MEDS ORDERED: DEPA1TAB3 PO (10:50)
[2023-08-26] MEDS ORDERED: PRED10TA2 PO (10:50)
[2023-08-26] MEDS ORDERED: METO10TA2 PO (12:07)
[2023-08-27 21:07] LABS: IgG P18 AB Absent (.); IgG P23 AB Absent (.); IgG P28 AB Absent (.); IgG P30 AB Absent (.); IgG P39 AB Absent (.); IgG P41 AB Absent (.); IgG P45 AB Absent (.); IgG P66 AB Absent (.); IgG P93 AB Absent (.); IgM P23 AB Absent (.); IgM P39 AB Absent (.); IgM P41 AB Absent (.); LYME IgG WB INTERPRETATION Negative (.); LYME IgM WB INTERPRETATION Negative (.)
[2023-08-28] MEDS ORDERED: predniSONE 10MG TAB PO SCH (09:00)
== END 2023-08-26 13:56 | DRG 82 ==
LOC: EDBD 19:42 → M ED 19:42 → M ED INP 19:43 → OBSVTOIN 19:44 → ENRESERV 08-22 03:24 → M MSPAV 08-22 03:55
PROVIDERS: ADMIT Internal Medicine; ATTEND Internal Medicine
DX: H53.8 Other visual disturbances (principal); R78.81 Bacteremia; R26.0 Ataxic gait; R74.01 Elevation of levels of liver transaminase levels; B19.20 Unspecified viral hepatitis C without hepatic coma; G43.909 Migraine, unspecified, not intractable, without status migrainosus; Z91.048 Other nonmedicinal substance allergy status